=== PATIENT | female | born 1935 | race Caucasian/White ===

== ENCOUNTER 2016-03-05 07:13 | Outpatient (CLI) | payer MEDICARE, OTHER ==
[2016-03-05 08:22] LABS: #Basophils 0.1 thou/uL (0.0-0.2); #Eosinphils 0.2 thou/uL (0.0-0.7); #Lymphocytes 2.6 thou/uL (1.20-3.40); #Monocytes 0.6 thou/uL (0.11-0.59); #Neutrophils 2.3 thou/uL (1.40-6.50); %Basophils 2.2 % (0.0-1.0); %Eosinophils 3.3 % (0.0-10.0); %Lymphocytes 44.8 % (21.0-51.0); %Monocytes 9.8 % (0.0-10.0); Hemoglobin 13.1 g/dL (12.0-16.0); Mean Corpuscular HGB CONC 32.3 g/dL (32.0-36.0); Mean Corpuscular Hemoglobin 32.8 pg (27.0-31.0); Mean Corpuscular Volume 101.3 fl (81.0-99.0); Mean Platelet Volume 7.9 fL (7.4-10.4); Platelet Count 244 thou/uL (130-400); RBC Distribution Width 12.3 % (11.5-14.5); Red Blood Cell (RBC) Count 3.99 mill/uL (4.20-5.40); White Blood Cell (WBC) Count 5.8 thou/uL (4.8-10.8)
[2016-03-05 09:08] LABS: ALT (SGPT) 11 U/L (0-55); AST (SGOT) 10 U/L (5-34); Albumin 3.7 g/dL (3.4-4.8); Alkaline Phosphatase 61 U/L (40-150); Anion Gap 17 mmol/L (10-20); BUN (Urea Nitrogen) 22 mg/dL (9.8-20.1); Bilirubin, Direct 0.2 mg/dL (0.1-0.3); Bilirubin, Total 0.5 mg/dL (0.2-1.2); Calc. Creatinine Clearance 0 mL/min (70-130); Calcium 9.2 mg/dL (7.8-10.44); Carbon Dioxide 25 mmol/L (23-31); Cardiac Risk 2.6 (Less than 4.5); Chloride 106 mmol/L (98-107); Cholesterol 134 mg/dL (< 200 Desired); Estimated GFR-MDRD 72; Glucose 88 mg/dL (83-110); HDL Cholesterol 51 mg/dL (>60 Neg Risk); LDL Cholesterol, Calculated 62 mg/dL; Potassium 4.2 mmol/L (3.5-5.1); Sodium 144 mmol/L (136-145); Triglycerides 105 mg/dL (Less than 150)
== END 2016-03-05 07:14 ==
LOC: MADLABBHPM 07:13
PROVIDERS: ATTEND Family Medicine
DX: E78.5 Hyperlipidemia, unspecified (principal); I10 Essential (primary) hypertension
CPT/HCPCS: 36415; 80048; 80061; 80076; 85025

== ENCOUNTER 2016-05-30 07:09 | Outpatient (CLI) | payer MEDICARE, OTHER ==
[2016-05-30 07:28] LABS: #Basophils 0.1 thou/uL (0.0-0.2); #Eosinphils 0.3 thou/uL (0.0-0.7); #Lymphocytes 2.2 thou/uL (1.20-3.40); #Monocytes 0.7 thou/uL (0.11-0.59); #Neutrophils 2.8 thou/uL (1.40-6.50); %Basophils 1.2 % (0.0-1.0); %Eosinophils 4.4 % (0.0-10.0); %Lymphocytes 36.5 % (21.0-51.0); %Monocytes 11.2 % (0.0-10.0); %Neutrophils 46.7 % (42.0-75.0); Hemoglobin 13.4 g/dL (12.0-16.0); Mean Corpuscular HGB CONC 32.2 g/dL (32.0-36.0); Mean Corpuscular Hemoglobin 32.9 pg (27.0-31.0); Mean Corpuscular Volume 102.1 fl (81.0-99.0); Platelet Count 257 thou/uL (130-400); RBC Distribution Width 12.4 % (11.5-14.5); Red Blood Cell (RBC) Count 4.07 mill/uL (4.20-5.40); White Blood Cell (WBC) Count 6.1 thou/uL (4.8-10.8)
[2016-05-30 07:43] LABS: ALT (SGPT) 12 U/L (0-55); AST (SGOT) 9 U/L (5-34); Albumin 3.8 g/dL (3.4-4.8); Alkaline Phosphatase 74 U/L (40-150); Anion Gap 14 mmol/L (10-20); BUN (Urea Nitrogen) 20 mg/dL (9.8-20.1); Bilirubin, Direct 0.2 mg/dL (0.1-0.3); Bilirubin, Total 0.5 mg/dL (0.2-1.2); Calc. Creatinine Clearance 0 mL/min (70-130); Calcium 9.5 mg/dL (7.8-10.44); Carbon Dioxide 25 mmol/L (23-31); Cardiac Risk 2.9 (Less than 4.5); Chloride 107 mmol/L (98-107); Cholesterol 157 mg/dL (< 200 Desired); Estimated GFR-MDRD 57; Glucose 93 mg/dL (83-110); HDL Cholesterol 54 mg/dL (>60 Neg Risk); LDL Cholesterol, Calculated 80 mg/dL; Potassium 4.7 mmol/L (3.5-5.1); Protein, Total 6.4 g/dL (5.8-8.1); Sodium 141 mmol/L (136-145); Triglycerides 116 mg/dL (Less than 150)
== END 2016-05-30 07:10 | disposition home or self-care (01) ==
LOC: MADLABBHPM 07:09
PROVIDERS: ATTEND Family Medicine
DX: E78.5 Hyperlipidemia, unspecified (principal); I10 Essential (primary) hypertension; I25.10 Atherosclerotic heart disease of native coronary artery without angina pectoris
CPT/HCPCS: 36415; 80048; 80061; 80076; 85025

== ENCOUNTER 2016-09-01 06:58 | Outpatient (CLI) | payer MEDICARE, OTHER ==
[2016-09-01 07:42] LABS: #Basophils 0.1 thou/uL (0.0-0.2); #Eosinphils 0.5 thou/uL (0.0-0.7); #Lymphocytes 2.3 thou/uL (1.20-3.40); #Monocytes 0.8 thou/uL (0.11-0.59); #Neutrophils 3.9 thou/uL (1.40-6.50); %Basophils 1.5 % (0.0-1.0); %Eosinophils 7.1 % (0.0-10.0); %Lymphocytes 30.1 % (21.0-51.0); %Monocytes 9.9 % (0.0-10.0); %Neutrophils 51.4 % (42.0-75.0); Hemoglobin 13.5 g/dL (12.0-16.0); Mean Corpuscular Hemoglobin 33.9 pg (27.0-31.0); Mean Corpuscular Volume 102.7 fl (81.0-99.0); Mean Platelet Volume 7.9 fL (7.4-10.4); Platelet Count 232 thou/uL (130-400); Red Blood Cell (RBC) Count 3.98 mill/uL (4.20-5.40); White Blood Cell (WBC) Count 7.6 thou/uL (4.8-10.8)
[2016-09-01 07:56] LABS: ALT (SGPT) 10 U/L (8-55); AST (SGOT) 10 U/L (5-34); Albumin 3.6 g/dL (3.4-4.8); Alkaline Phosphatase 62 U/L (40-150); Anion Gap 12 mmol/L (10-20); BUN (Urea Nitrogen) 25 mg/dL (9.8-20.1); Bilirubin, Direct 0.3 mg/dL (0.1-0.3); Bilirubin, Total 0.7 mg/dL (0.2-1.2); Calc. Creatinine Clearance 0 mL/min (70-130); Calcium 9.5 mg/dL (7.8-10.44); Carbon Dioxide 27 mmol/L (23-31); Cardiac Risk 2.7 (Less than 4.5); Chloride 108 mmol/L (98-107); Cholesterol 147 mg/dl (< 200 Desired); Estimated GFR-MDRD 74; Glucose 93 mg/dL (83-110); HDL Cholesterol 55 mg/dL (>60 Neg Risk); LDL Cholesterol, Calculated 69 mg/dL; Potassium 4.4 mmol/L (3.5-5.1); Protein, Total 6.7 g/dL (6.0-8.3); Sodium 143 mmol/L (136-145); Triglycerides 116 mg/dL (Less than 150)
== END 2016-09-01 06:59 | disposition home or self-care (01) ==
LOC: MADLAB 06:58
PROVIDERS: ATTEND Family Medicine
DX: E78.5 Hyperlipidemia, unspecified (principal); N28.9 Disorder of kidney and ureter, unspecified; I25.10 Atherosclerotic heart disease of native coronary artery without angina pectoris
CPT/HCPCS: 36415; 80048; 80061; 80076; 85025

== ENCOUNTER 2016-11-20 13:25 | Emergency (ER) | payer MEDICARE, BC, OTHER ==
--- NOTE | 2016-11-20 14:18 | RAD ---
2 VIEWS RIGHT HIP: Date: 11/20/16 COMPARISON: None. HISTORY: Right hip injury with pain. FINDINGS: Two views of the right hip show no evidence of acute fracture or dislocation. There is mild degenera tive change in the right hip. No soft tissue swelling is seen. IMPRESSION: Mild right hip osteoarthritis without acute osseous abnormality. POS: [facility]
--- NOTE | 2016-11-20 14:26 | RAD ---
2 VIEWS RIGHT FEMUR: Date: 11/20/16 COMPARISON: None. HISTORY: Right leg injury with pain. FINDINGS: Two views of the right femur show no evidence of acute fracture or dislocation. Mild degenerative ch jeanna is seen in the right hip. No focal soft tissue swelling is seen. IMPRESSION: No evidence of acute osseous abnormality. POS: [facility]
== END 2016-11-20 14:10 | disposition home or self-care (01) ==
LOC: MADERS 13:25
DX: S70.01XA Contusion of right hip, initial encounter (principal); I11.0 Hypertensive heart disease with heart failure; I50.9 Heart failure, unspecified; E78.5 Hyperlipidemia, unspecified; J45.909 Unspecified asthma, uncomplicated; Z79.899 Other long term (current) drug therapy; W01.0XXA Fall on same level from slipping, tripping and stumbling without subsequent striking against object, initial encounter; Y92.009 Unspecified place in unspecified non-institutional (private) residence as the place of occurrence of the external cause

== ENCOUNTER 2017-12-18 11:40 | Inpatient (IN) | payer MEDICARE, OTHER ==
[2017-12-18] MEDS ORDERED: Acetaminophen 325 MG TAB PO PRN (14:32)
[2017-12-18] MEDS ORDERED: Calcium Carbonate 500 MG ChewTAB PO PRN (14:35)
[2017-12-18] MEDS: HYDROcodone/Acetaminophen 7.5/325 mg Tablet PO PRN (16:37)
[2017-12-18] MEDS ORDERED: Ventolin HFA Inhaler 60 PUFF INHALER INH PRN (17:03)
[2017-12-18 17:39] LABS: Bilirubin Negative (Negative); Blood, Urine Trace (Negative); Clarity Clear (Clear); Glucose, Urine (Dipstick) Negative (Negative); Leukocyte Negative (Negative); Nitrite Negative (Negative); Protein, Urine (Dipstick) Negative (Neg-Trace); Specific Gravity, Urine 1.015 (1.005-1.030); Urobilinogen 0.2 mg/dL (0.2-1.0); pH, Urine 5.5 (5.0-9.0)
[2017-12-18 17:55] LABS: Bacteria/HPF Rare-Few HPF (None Seen); Squamous Epithelial 0-3 HPF (0-3)
--- NOTE | 2017-12-18 18:07 | HP ---
Admitted to [facility] on 12/18/2017 CHIEF COMPLAINT: Weakness following a left knee replacement on 12/15/2017. PRESENT ILLNESS: The patient is an 82-year-old white female who has a history of hypertension; mild coronary artery disease, medically managed; moderate persistent asthma; controlled and severe general ized osteoarthritis particularly of the knees and the back. The patient said increasing pain with am bulation in her left knee that had been unresponsive to conservative measures including steroid injec tions. The patient was hospitalized at [facility] from 12/15/2017 until 12/18/2017 and un derwent a left total knee arthroplasty by orthopedic surgeon, Dr. Jeff Hays. This went very well. She has had no postop complication. She has been up in a bedside chair and ambulating short distan brandyn since the operation. Prior to the operation, the patient was independent of her ADLs lived at he r home alone and was able to drive. The patient was seen soon after her admission, the patient said she has done very well since her surg carlee. The leg is still sore, but she is not having the same pain with weightbearing that she did prio r to the surgery, her pain is from the operation. She is doing well. She has had no nausea or vomit ing. Her bowels have not moved, but she was given a laxative today. She has had no shortness of vee ath or chest pain. PAST HISTORY: Hospitalized at [facility] from 12/15/2017-12/18/2017, severe arthritis of th e left knee for which she underwent a left total knee replacement on 12/15/[address] Jeff Hays w ithout any complication. The patient has hypertension. She has moderate persistent asthma that is c ontrolled, generalized osteoarthritis particularly of the knees. Spondylosis of the lumbar spine wit h spinal stenosis, mild coronary artery disease that has been medically managed. 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 Hyperlipidemia. Patient has had a L4-L5, L5-S1 laminectomy with bilateral fo raminotomy also a foraminotomy at L3-4 with excision of extruded disk sac, this fragment in 09/2000. Orthoscopic assisted rotator cuff repair of the left shoulder, 11/1999, hysterectomy, bilateral joceline ract removal with intraocular lens implants. PRESENT MEDICINES: DuoNeb by nebulizer q.i.d. as needed, Xopenex 2 puffs every 6 hours as needed, ac etaminophen 325 mg 2 every 6 hours as needed for pain, Centrum vitamins 1 daily, Caltrate D of 600/20 0 daily 4 tablets daily, furosemide 40 mg daily, isosorbide mononitrate ER 30 mg daily, Symbicort 160 /4.5 two puffs b.i.d., Singulair 10 mg daily, amlodipine/benazepril 5/20 one daily, gabapentin 100 mg 2 b.i.d., Crestor 40 mg daily, hydralazine 50 mg every 6 hours, benazepril 40 mg daily. ALLERGIES: ZANAFLEX causes numbness. ASPIRIN, nausea. THEOPHYLLINE, unknown. OLANZAPINE, ZYPREXA. REVIEW OF SYSTEMS: Patient denies any weight gain or loss. The patient said she thinks she may have had a little low grade fever. Head and Neck: No complaints. Pulmonary: No shortness of breath, n o wheezing, no cough. Cardiovascular: No chest pain. Gastrointestinal: No nausea or vomiting. Ap petite good. Bowels have not moved for several days. Genitourinary: No complaints. Neuropsychiatr ic: No complaints. Musculoskeletal: The patient has soreness in her left knee from her knee replac ement using ice on the knee intermittently and is ambulating short distances with the use of a walker . HABITS: Alcohol none. Tobacco none. SOCIAL HISTORY: Patient is a . She lives by herself, but has family that lives in the same tow n that assist her with some of her instrumental ADLs. PHYSICAL EXAMINATION: GENERAL: Shows a very pleasant 82-year-old white female who is lying in bed. She is alert. VITAL SIGNS: Temperature of 100.3, pulse 83, respirations 18, O2 sat 96% on room air, blood pressure 136/63. HEAD: Normocephalic and atraumatic. EYES: Pupils are equal, round, and reactive. Sclerae nonicteric. EARS: TMs are clear. NOSE: Normal. MOUTH AND THROAT: Normal. NECK: Carotids are equal and strong, no bruits. Thyroid not enlarged. LUNGS: Clear. HEART: Regular rate. No murmurs. ABDOMEN: Soft, no organomegaly, no areas of tenderness. EXTREMITIES: Lower extremities: There is no edema over the lower legs, the right knee is larger anjel n the left. She has a vertical incision. No drainage. There is an overlying dressing. The knee worthington s pain. There is some increased warmth and expect that within what would be expected for 3 days post op. NEUROLOGIC: The patient alert, oriented x3, has good strength overall, but weak in the left leg seco ndary to the knee replacement. IMPRESSION: 1. Weakness and gait abnormality. A. Secondary to a left total knee replacement on 12/15/2017, dependent ADLs and lived independently prior to surgery. 2. Severe osteoarthritis of the left knee. A. Status post left total knee replacement 12/16/2107. 3. Hospitalized at [facility] from 12/15/2017 until 12/18/2017 for left total knee replac ement. 4. Hypertension. 5. Chronic persistent asthma. A. Controlled. 6. Mild coronary artery disease. A heart catheterization showed a 40%-50% distal RCA stenosis, but no other significant lesions 09/07/1998. B. Medically managed. C. Presently asymptomatic. 7. Hyperlipidemia. 8. Low-grade fever, probably secondary to recent left knee surgery. No focal signs of infection. 9. Spondylosis of the lumbosacral spine complicated by spinal stenosis. PLAN: The patient has been admitted to [facility] extended care for purpose of PT and OT in an effort to improve her strength, deconditioning, and gait. Goals are for her to return home to [facility] living. See orders.
[2017-12-18] MEDS: Mometasone/Formoterol 60 PUFF AER INH SCH (19:00)
[2017-12-18] MEDS: Senokot S 8.6-50 MG TAB PO SCH (20:35)
[2017-12-18] MEDS: Famotidine 20 MG TAB PO SCH (20:35)
[2017-12-18] MEDS: Ferrous Gluconate 324 MG TAB PO SCH (20:36)
[2017-12-19] MEDS: HYDROcodone/Acetaminophen 7.5/325 mg Tablet PO PRN ×3 (04:48→20:32)
[2017-12-19] MEDS: Mometasone/Formoterol 60 PUFF AER INH SCH ×2 (04:49→20:20)
[2017-12-19 06:28] LABS: ALT (SGPT) 17 U/L (8-55); AST (SGOT) 15 U/L (5-34); Albumin 2.9 g/dL (3.4-4.8); Alkaline Phosphatase 68 U/L (40-150); Anion Gap 12 mmol/L (10-20); BUN (Urea Nitrogen) 16 mg/dL (9.8-20.1); Bilirubin, Total 0.8 mg/dL (0.2-1.2); Calc. Creatinine Clearance 77 mL/min (70-130); Calcium 9.1 mg/dL (7.8-10.44); Carbon Dioxide 30 mmol/L (23-31); Chloride 103 mmol/L (98-107); Estimated GFR-MDRD 75; Glucose 108 mg/dL (83-110); Potassium 3.9 mmol/L (3.5-5.1); Protein, Total 5.9 g/dL (6.0-8.3); Sodium 141 mmol/L (136-145)
[2017-12-19 06:36] LABS: Anisocytosis SLIGHT = 6-15 cells (100X) (0-5/hpf); Eosinophils 2 % (0-10); Hemoglobin 9.5 g/dL (12.0-16.0); Hypochromia SLIGHT = 6-15 cells (100X) (0-5/hpf); Lymphocytes 17 % (21-51); MDiff Complete? YES; Mean Corpuscular HGB CONC 32.9 g/dL (32.0-36.0); Mean Corpuscular Volume 100.6 fL (78.0-98.0); Monocytes 7 % (0-10); Neutrophil 74 % (42-75); PLT Morphology Comment Appears Adequate; Platelet Count 224 thou/uL (130-400); Poikilocytosis SLIGHT = 6-15 cells (100X) (0-5/hpf); RBC Distribution Width 12.1 % (11.5-14.5); RBC Morphology Abnormal; Red Blood Cell (RBC) Count 2.87 mill/uL (4.20-5.40); White Blood Cell (WBC) Count 7.2 thou/uL (4.8-10.8)
[2017-12-19] MEDS: hydrALAZINE 25 MG TAB PO SCH (08:52)
[2017-12-19] MEDS: Famotidine 20 MG TAB PO SCH ×2 (08:52→20:21)
[2017-12-19] MEDS: Enoxaparin Sodium 40 MG/0.4 ML SYRINGE SC SCH (08:52)
[2017-12-19] MEDS: Cyanocobalamin (Vitamin B-12) 1,000 MCG TAB PO SCH (08:52)
[2017-12-19] MEDS: Rosuvastatin 10 MG TAB PO SCH (08:53)
[2017-12-19] MEDS: Senokot S 8.6-50 MG TAB PO SCH ×2 (08:53→20:22)
[2017-12-19] MEDS: Ferrous Gluconate 324 MG TAB PO SCH ×2 (08:55→20:21)
[2017-12-19] MEDS: Amlodipine 5 MG TAB PO SCH (08:55)
[2017-12-19] MEDS: Folic Acid 1 MG TAB PO SCH (08:56)
[2017-12-19] MEDS: Multivitamin W/ Minerals 1 TAB PO SCH (08:57)
[2017-12-19] MEDS: Furosemide 40 MG TAB PO SCH (08:57)
[2017-12-19] MEDS: Montelukast Sodium 10 mg Tablet PO SCH (08:57)
[2017-12-19] MEDS ORDERED: AMLODIPINE PO SCH (09:00)
[2017-12-19] MEDS ORDERED: BENAZEPRIL PO SCH (09:00)
[2017-12-20] MEDS: Mometasone/Formoterol 60 PUFF AER INH SCH ×2 (07:41→18:27)
[2017-12-20] MEDS: HYDROcodone/Acetaminophen 7.5/325 mg Tablet PO PRN (08:12)
[2017-12-20] MEDS: Senokot S 8.6-50 MG TAB PO SCH ×2 (08:13→20:42)
[2017-12-20] MEDS: Rosuvastatin 10 MG TAB PO SCH (08:14)
[2017-12-20] MEDS: Cyanocobalamin (Vitamin B-12) 1,000 MCG TAB PO SCH (08:15)
[2017-12-20] MEDS: hydrALAZINE 25 MG TAB PO SCH (08:15)
[2017-12-20] MEDS: Ferrous Gluconate 324 MG TAB PO SCH ×2 (08:15→20:41)
[2017-12-20] MEDS: Montelukast Sodium 10 mg Tablet PO SCH ×2 (08:15→08:16)
[2017-12-20] MEDS: Furosemide 40 MG TAB PO SCH (08:15)
[2017-12-20] MEDS: Multivitamin W/ Minerals 1 TAB PO SCH (08:16)
[2017-12-20] MEDS: Famotidine 20 MG TAB PO SCH ×2 (08:16→20:41)
[2017-12-20] MEDS: Folic Acid 1 MG TAB PO SCH (08:16)
[2017-12-20] MEDS: Amlodipine 5 MG TAB PO SCH (08:16)
[2017-12-20] MEDS: Enoxaparin Sodium 40 MG/0.4 ML SYRINGE SC SCH (08:23)
--- NOTE | 2017-12-21 07:57 | PRG ---
DATE OF SERVICE: 12/19/2017 SUBJECTIVE: The patient said she is feeling better today. Her knee feels better. Reviewed the elisa ent's medication list with her home list, the Lotensin that is amlodipine, benazepril at home was 520 and she is taking the additional benazepril 40 mg. At home she takes hydralazine q.i.d. She is onl y receiving this once here, but her pressure has been very good. OBJECTIVE: GENERAL: The patient is alert, talkative, hard of hearing, but appears in no distress. VITAL SIGNS: Her temperature is 96.9, pulse 74, respirations 18, O2 sat 95% on room air, blood press ure 129/59. LUNGS: Clear. HEART: Regular rate. EXTREMITIES: Left knee is larger than the right. There was a little pinkness to the skin and increa sed warmth typical with this postop. Overall, the leg looks good in the incision is dry with no drai nage. LABORATORY DATA: Her lab shows H and H of 9.5 and 28.9, white cell count 7200 with 74% segs, 17% lym phocytes, and a platelet count of 224,000. Her sodium was 141, potassium 3.9, BUN 16, creatinine 0.7 4, GFR 75, glucose 108, albumin 2.9. Urine shows 4-6 wbc's, nitrite is negative. ASSESSMENT: 1. Weakness and gait abnormality. A. Secondary to a left total knee replacement on 12/15/2017, dependent ADLs and lived independently prior to surgery. B. Improved, tolerating, walking short distances as of 12/19/2017. 2. Severe osteoarthritis of the left knee. A. Doing very well for postop day 4. 3. Hospitalized at [facility] 12[facility]15[facility] 4. Hypertension. A. Controlled as of 12/19/2017. 5. Chronic persistent asthma. A. Controlled. 6. Mild coronary artery disease. A heart catheterization showed a 40%-50% distal RCA stenosis, but no other significant lesions 09/07/1998. B. Medically managed. C. Presently asymptomatic. 7. Hyperlipidemia. 8. Low-grade fever, probably secondary to recent left knee surgery. No focal signs of infection. A. Resolved, 12/19/2017. suspect secondary to recent knee replacement. 9. Spondylosis of the lumbosacral spine complicated by spinal stenosis. PLAN: Continue present care. We will continue present medications. Continue PT and OT. The anemia is secondary to recent surgery.
[2017-12-21] MEDS: Mometasone/Formoterol 60 PUFF AER INH SCH ×2 (08:50→19:34)
[2017-12-21] MEDS: Multivitamin W/ Minerals 1 TAB PO SCH (08:51)
[2017-12-21] MEDS: Senokot S 8.6-50 MG TAB PO SCH ×2 (08:51→21:36)
[2017-12-21] MEDS: Rosuvastatin 10 MG TAB PO SCH (08:52)
[2017-12-21] MEDS: hydrALAZINE 25 MG TAB PO SCH (08:52)
[2017-12-21] MEDS: Cyanocobalamin (Vitamin B-12) 1,000 MCG TAB PO SCH (08:53)
[2017-12-21] MEDS: Famotidine 20 MG TAB PO SCH ×2 (08:53→21:36)
[2017-12-21] MEDS: Furosemide 40 MG TAB PO SCH (08:53)
[2017-12-21] MEDS: Folic Acid 1 MG TAB PO SCH (08:53)
[2017-12-21] MEDS: Ferrous Gluconate 324 MG TAB PO SCH ×2 (08:53→21:36)
[2017-12-21] MEDS: Amlodipine 5 MG TAB PO SCH (08:53)
[2017-12-21] MEDS: Enoxaparin Sodium 40 MG/0.4 ML SYRINGE SC SCH (08:54)
[2017-12-21] MEDS: HYDROcodone/Acetaminophen 7.5/325 mg Tablet PO PRN ×2 (09:08→21:39)
--- NOTE | 2017-12-21 11:57 | PRG ---
DATE OF SERVICE: 12/21/2017 SUBJECTIVE: The patient says her knee feels better. She is up this morning in physical therapy work ing on the [employer]. OBJECTIVE: The patient is sitting up on the NuStep working her legs and arms trying to improve her r jeanna of motion in that left knee. She appears comfortable in no distress. Her vital signs show a te mperature of 99.3, pulse 80, respirations 18, O2 sat 95% on room air, blood pressure 163/72. Lungs a re clear. Heart, regular rate. Lower extremities, no edema. Her left knee, there is some little pi nkness at parts of the knee. There is some increased warmth, but no more than what it has been. Ove rall, the leg looks good. ASSESSMENT: 1. Weakness and gait abnormality. A. Secondary to a left total knee replacement on 12/15/2017, dependent ADLs and lived independently prior to surgery. B. Improved, walking short distances with a rolling walker and standby assistance now working some o n a [facility] as of 12/21/2017. 2. Severe osteoarthritis of the left knee. A. Status post left total knee replacement 12/16/2107. B. Postop day #6, doing very well as of 12/21/2017. 3. Hospitalized at [facility] from 12/15/2017 until 12/18/2017 for left total knee replac emlisa. 4. Hypertension. 5. Chronic persistent asthma. A. Controlled. 6. Mild coronary artery disease. A heart catheterization showed a 40%-50% distal RCA stenosis, but no other significant lesions 09/07/1998. B. Medically managed. C. Presently asymptomatic. 7. Hyperlipidemia. 8. Low-grade fever, probably secondary to recent left knee surgery. No focal signs of infection. 9. Spondylosis of the lumbosacral spine complicated by spinal stenosis. PLAN: Continue present care. Continue PT. The patient occasionally has very low grade temperature, probably from the recent knee surgery. No signs of any infection present.
[2017-12-22] MEDS: Mometasone/Formoterol 60 PUFF AER INH SCH ×2 (08:34→20:18)
[2017-12-22] MEDS ORDERED: HYDROcodone/Acetaminophen 10/325 mg Tablet PO PRN (08:36)
[2017-12-22] MEDS: Amlodipine 5 MG TAB PO SCH (08:37)
[2017-12-22] MEDS: Rosuvastatin 10 MG TAB PO SCH (08:38)
[2017-12-22] MEDS: Senokot S 8.6-50 MG TAB PO SCH ×2 (08:39→20:20)
[2017-12-22] MEDS: Multivitamin W/ Minerals 1 TAB PO SCH (08:39)
[2017-12-22] MEDS: Furosemide 40 MG TAB PO SCH (08:39)
[2017-12-22] MEDS: Ferrous Gluconate 324 MG TAB PO SCH ×2 (08:39→20:20)
[2017-12-22] MEDS: Montelukast Sodium 10 mg Tablet PO SCH (08:39)
[2017-12-22] MEDS: Folic Acid 1 MG TAB PO SCH (08:39)
[2017-12-22] MEDS: Cyanocobalamin (Vitamin B-12) 1,000 MCG TAB PO SCH (08:39)
[2017-12-22] MEDS: Famotidine 20 MG TAB PO SCH ×2 (08:39→20:19)
[2017-12-22] MEDS: hydrALAZINE 25 MG TAB PO SCH (08:39)
[2017-12-22] MEDS: Enoxaparin Sodium 40 MG/0.4 ML SYRINGE SC SCH (08:40)
--- NOTE | 2017-12-22 09:28 | PRG ---
DATE OF SERVICE: 12/22/2017 SUBJECTIVE: The patient said she is doing good. She says her leg is feeling better. She still has limitation of use of it, but is improving. She is working well with physical therapy. OBJECTIVE: The patient is sitting up in bed eating her breakfast. She is alert, appears very comfor table in no distress. Her temperature is 98.2, pulse 72, respirations 16, O2 sat 93% on room air, bl ood pressure 136/61. Lungs are clear. Heart, regular rate. Extremities, no edema. Left knee incis ion healing well. The left knee is a little larger than the right. There is a little increased warm th, no more than what it has been. There is no redness to the knee. ASSESSMENT: 1. Weakness and gait abnormality. A. Secondary to a left total knee replacement on 12/15/2017, dependent ADLs and lived independently prior to surgery. B. Improved. Walking a little further with a rolling walker and standby assistance as of 12/22/2017. 2. Severe osteoarthritis of the left knee. A. Status post left total knee replacement 12/16/2107. B. Postop day #7. Doing well as of 12/22/2017. 3. Hospitalized at [facility] from 12/15/2017 until 12/18/2017 for left total knee replac ement. 4. Hypertension. 5. Chronic persistent asthma. A. Controlled. 6. Mild coronary artery disease. A heart catheterization showed a 40%-50% distal RCA stenosis, but no other significant lesions 09/07/1998. B. Medically managed. C. Presently asymptomatic. 7. Hyperlipidemia. 8. Low-grade fever, probably secondary to recent left knee surgery. No focal signs of infection. A. Resolved as of 12/22/2017. 9. Spondylosis of the lumbosacral spine complicated by spinal stenosis. PLAN: Continue present care. Continue PT and OT.
[2017-12-22] MEDS: HYDROcodone/Acetaminophen 7.5/325 mg Tablet PO PRN (20:21)
[2017-12-23] MEDS: Enoxaparin Sodium 40 MG/0.4 ML SYRINGE SC SCH (08:26)
[2017-12-23] MEDS: Mometasone/Formoterol 60 PUFF AER INH SCH ×2 (08:26→18:05)
[2017-12-23] MEDS: Furosemide 40 MG TAB PO SCH (08:27)
[2017-12-23] MEDS: Rosuvastatin 10 MG TAB PO SCH (08:27)
[2017-12-23] MEDS: Senokot S 8.6-50 MG TAB PO SCH ×2 (08:28→20:32)
[2017-12-23] MEDS: Amlodipine 5 MG TAB PO SCH (08:28)
[2017-12-23] MEDS: Montelukast Sodium 10 mg Tablet PO SCH (08:28)
[2017-12-23] MEDS: Multivitamin W/ Minerals 1 TAB PO SCH (08:29)
[2017-12-23] MEDS: Cyanocobalamin (Vitamin B-12) 1,000 MCG TAB PO SCH (08:29)
[2017-12-23] MEDS: hydrALAZINE 25 MG TAB PO SCH (08:29)
[2017-12-23] MEDS: Famotidine 20 MG TAB PO SCH ×2 (08:29→20:29)
[2017-12-23] MEDS: Folic Acid 1 MG TAB PO SCH (08:29)
[2017-12-23] MEDS: Ferrous Gluconate 324 MG TAB PO SCH ×2 (08:29→20:29)
[2017-12-23] MEDS: HYDROcodone/Acetaminophen 7.5/325 mg Tablet PO PRN ×2 (09:28→20:29)
--- NOTE | 2017-12-23 09:51 | PRG ---
DATE OF SERVICE: 12/23/2017 SUBJECTIVE: The patient thinks she is doing a little better. She is working with physical therapy, working on the NuStep and doing a little more each day. Her knee is feeling better. OBJECTIVE: The patient is sitting on the NuStep working her arms and her legs. She appears comforta ble in no distress. Her temperature 98.8, pulse 83, respirations 18, O2 sat 95% on room air, blood p ressure from last night 133/62. This morning's is pending. Lungs are clear. Heart, regular rate. Left knee incision is healing well. There is no drainage. The left knee is slightly warmer than the right. Overall, the knee looks good. ASSESSMENT: 1. Weakness and gait abnormality. A. Secondary to a left total knee replacement on 12/15/2017, dependent ADLs and lived independently prior to surgery. B. Improved. Walking better using a rolling walker working on the NuStep as of 12/23/2017. 2. Severe osteoarthritis of the left knee. A. Status post left total knee replacement 12/16/2107. B. Postop day 8, doing well as of 12/23/2017. 3. Hospitalized at [facility] from 12/15/2017 until 12/18/2017 for left total knee replac ement. 4. Hypertension. 5. Chronic persistent asthma. A. Controlled. 6. Mild coronary artery disease. A heart catheterization showed a 40%-50% distal RCA stenosis, but no other significant lesions 09/07/1998. B. Medically managed. C. Presently asymptomatic. 7. Hyperlipidemia. 8. Low-grade fever, probably secondary to recent left knee surgery. No focal signs of infection. A. Resolved as of 12/22/2017. 9. Spondylosis of the lumbosacral spine complicated by spinal stenosis. PLAN: Continue PT and OT.
[2017-12-24] MEDS: Mometasone/Formoterol 60 PUFF AER INH SCH ×2 (08:13→21:29)
[2017-12-24] MEDS: Multivitamin W/ Minerals 1 TAB PO SCH (08:14)
[2017-12-24] MEDS: Cyanocobalamin (Vitamin B-12) 1,000 MCG TAB PO SCH (08:14)
[2017-12-24] MEDS: Rosuvastatin 10 MG TAB PO SCH (08:14)
[2017-12-24] MEDS: Famotidine 20 MG TAB PO SCH ×2 (08:14→21:30)
[2017-12-24] MEDS: Senokot S 8.6-50 MG TAB PO SCH ×2 (08:15→21:30)
[2017-12-24] MEDS: Amlodipine 5 MG TAB PO SCH (08:15)
[2017-12-24] MEDS: hydrALAZINE 25 MG TAB PO SCH (08:15)
[2017-12-24] MEDS: Furosemide 40 MG TAB PO SCH (08:15)
[2017-12-24] MEDS: Montelukast Sodium 10 mg Tablet PO SCH (08:15)
[2017-12-24] MEDS: Ferrous Gluconate 324 MG TAB PO SCH ×2 (08:15→21:30)
[2017-12-24] MEDS: Enoxaparin Sodium 40 MG/0.4 ML SYRINGE SC SCH (08:15)
[2017-12-24] MEDS: Folic Acid 1 MG TAB PO SCH (08:15)
[2017-12-24] MEDS: HYDROcodone/Acetaminophen 7.5/325 mg Tablet PO PRN ×2 (08:20→21:32)
[2017-12-25] MEDS: Mometasone/Formoterol 60 PUFF AER INH SCH ×2 (06:25→18:35)
[2017-12-25] MEDS: Amlodipine 5 MG TAB PO SCH (08:41)
[2017-12-25] MEDS: Enoxaparin Sodium 40 MG/0.4 ML SYRINGE SC SCH (08:42)
[2017-12-25] MEDS: Famotidine 20 MG TAB PO SCH ×2 (08:42→20:34)
[2017-12-25] MEDS: Furosemide 40 MG TAB PO SCH (08:42)
[2017-12-25] MEDS: Cyanocobalamin (Vitamin B-12) 1,000 MCG TAB PO SCH (08:42)
[2017-12-25] MEDS: Folic Acid 1 MG TAB PO SCH (08:42)
[2017-12-25] MEDS: Ferrous Gluconate 324 MG TAB PO SCH ×2 (08:42→20:34)
[2017-12-25] MEDS: Montelukast Sodium 10 mg Tablet PO SCH (08:43)
[2017-12-25] MEDS: hydrALAZINE 25 MG TAB PO SCH (08:43)
[2017-12-25] MEDS: Multivitamin W/ Minerals 1 TAB PO SCH (08:43)
[2017-12-25] MEDS: Rosuvastatin 10 MG TAB PO SCH (08:43)
[2017-12-25] MEDS: Senokot S 8.6-50 MG TAB PO SCH ×2 (08:45→20:35)
--- NOTE | 2017-12-25 10:18 | PRG ---
DATE OF SERVICE: 12/25/2017 SUBJECTIVE: The patient said she is doing good. She has already been for a walk this morning and sh e is a little tired. She said the therapist said she has 91 degrees of flexion in that left knee. OBJECTIVE: The patient is sitting up in a chair. She is alert, appears comfortable and in no distre ss. Her temperature 99.1, pulse 76, respirations 18, O2 sat 97% on room air, blood pressure 164/71. Lungs are clear. Heart; regular rate. Left knee is a little larger than the right knee, there is a little increased warmth, but no more than what it has been and typical at this point postop, incisio n healing well. There is no edema of the lower legs. ASSESSMENT: 1. Weakness and gait abnormality. A. Secondary to a left total knee replacement on 12/15/2017, dependent ADLs and lived independently prior to surgery. B. Improved. Walking further, flexion better in the left knee as of 12/25/2017. 2. Severe osteoarthritis of the left knee. A. Status post left total knee replacement 12/16/2107. B. Postop day 10. Doing well as of 12/25/2017. 3. Hospitalized at [facility] from 12/15/2017 until 12/18/2017 for left total knee replac ement. 4. Hypertension. 5. Chronic persistent asthma. A. Controlled. 6. Mild coronary artery disease. A heart catheterization showed a 40%-50% distal RCA stenosis, but no other significant lesions 09/07/1998. B. Medically managed. C. Presently asymptomatic. 7. Hyperlipidemia. 8. Low-grade fever, probably secondary to recent left knee surgery. No focal signs of infection. A. Resolved as of 12/22/2017. 9. Spondylosis of the lumbosacral spine complicated by spinal stenosis. PLAN: The patient continues to make gradual improvement. We will continue present care. Continue P T.
[2017-12-25] MEDS: HYDROcodone/Acetaminophen 7.5/325 mg Tablet PO PRN (12:22)
[2017-12-25] MEDS ORDERED: HYDROcodone/Acetaminophen 10/325 mg Tablet PO PRN (16:56)
[2017-12-26] MEDS: Mometasone/Formoterol 60 PUFF AER INH SCH ×2 (08:40→19:46)
[2017-12-26] MEDS: Cyanocobalamin (Vitamin B-12) 1,000 MCG TAB PO SCH (08:41)
[2017-12-26] MEDS: Enoxaparin Sodium 40 MG/0.4 ML SYRINGE SC SCH (08:41)
[2017-12-26] MEDS: Rosuvastatin 10 MG TAB PO SCH (08:41)
[2017-12-26] MEDS: Famotidine 20 MG TAB PO SCH ×2 (08:41→20:07)
[2017-12-26] MEDS: hydrALAZINE 25 MG TAB PO SCH (08:43)
[2017-12-26] MEDS: Senokot S 8.6-50 MG TAB PO SCH ×2 (08:52→20:06)
[2017-12-26] MEDS: Folic Acid 1 MG TAB PO SCH (08:52)
[2017-12-26] MEDS: Amlodipine 5 MG TAB PO SCH (08:52)
[2017-12-26] MEDS: Multivitamin W/ Minerals 1 TAB PO SCH (08:52)
[2017-12-26] MEDS: Ferrous Gluconate 324 MG TAB PO SCH ×2 (08:52→20:07)
[2017-12-26] MEDS: Furosemide 40 MG TAB PO SCH (08:52)
[2017-12-26] MEDS: Montelukast Sodium 10 mg Tablet PO SCH (08:53)
[2017-12-26] MEDS: HYDROcodone/Acetaminophen 7.5/325 mg Tablet PO PRN ×2 (13:20→20:10)
[2017-12-27] MEDS: Mometasone/Formoterol 60 PUFF AER INH SCH ×2 (07:27→19:14)
[2017-12-27] MEDS: hydrALAZINE 25 MG TAB PO SCH (08:23)
[2017-12-27] MEDS: Rosuvastatin 10 MG TAB PO SCH (08:24)
[2017-12-27] MEDS: Cyanocobalamin (Vitamin B-12) 1,000 MCG TAB PO SCH (08:24)
[2017-12-27] MEDS: Folic Acid 1 MG TAB PO SCH (08:25)
[2017-12-27] MEDS: Montelukast Sodium 10 mg Tablet PO SCH (08:25)
[2017-12-27] MEDS: Furosemide 40 MG TAB PO SCH (08:25)
[2017-12-27] MEDS: Ferrous Gluconate 324 MG TAB PO SCH ×2 (08:25→20:14)
[2017-12-27] MEDS: Multivitamin W/ Minerals 1 TAB PO SCH (08:25)
[2017-12-27] MEDS: Senokot S 8.6-50 MG TAB PO SCH ×2 (08:25→20:14)
[2017-12-27] MEDS: Famotidine 20 MG TAB PO SCH ×2 (08:25→20:14)
[2017-12-27] MEDS: Amlodipine 5 MG TAB PO SCH (08:26)
[2017-12-27] MEDS: Enoxaparin Sodium 40 MG/0.4 ML SYRINGE SC SCH (08:27)
[2017-12-27] MEDS: HYDROcodone/Acetaminophen 7.5/325 mg Tablet PO PRN (21:28)
[2017-12-28] MEDS: Mometasone/Formoterol 60 PUFF AER INH SCH ×2 (08:21→17:04)
[2017-12-28] MEDS: Enoxaparin Sodium 40 MG/0.4 ML SYRINGE SC SCH (08:22)
[2017-12-28] MEDS: Rosuvastatin 10 MG TAB PO SCH (08:23)
[2017-12-28] MEDS: Famotidine 20 MG TAB PO SCH ×2 (08:23→20:05)
[2017-12-28] MEDS: Folic Acid 1 MG TAB PO SCH (08:24)
[2017-12-28] MEDS: Furosemide 40 MG TAB PO SCH (08:24)
[2017-12-28] MEDS: Ferrous Gluconate 324 MG TAB PO SCH ×2 (08:24→20:05)
[2017-12-28] MEDS: Cyanocobalamin (Vitamin B-12) 1,000 MCG TAB PO SCH (08:24)
[2017-12-28] MEDS: hydrALAZINE 25 MG TAB PO SCH (08:24)
[2017-12-28] MEDS: Amlodipine 5 MG TAB PO SCH (08:24)
[2017-12-28] MEDS: Multivitamin W/ Minerals 1 TAB PO SCH (08:25)
[2017-12-28] MEDS: Senokot S 8.6-50 MG TAB PO SCH ×2 (08:25→20:07)
[2017-12-28] MEDS: Montelukast Sodium 10 mg Tablet PO SCH (08:25)
[2017-12-28] MEDS: HYDROcodone/Acetaminophen 7.5/325 mg Tablet PO PRN ×2 (08:27→20:05)
--- NOTE | 2017-12-28 12:00 | PRG ---
DATE OF SERVICE: 12/26/2017 SUBJECTIVE: The patient said that she is doing good today. She is moving a little better, but is be nding the leg a little better, still slow progress. She had no really new complaints. OBJECTIVE: GENERAL: The patient is sitting in her lounge chair, just returning from the bathroom with assistanc e. She looks comfortable, in no distress. VITAL SIGNS: Her temperature is 98.3, pulse 84, blood pressure 182/80, has not yet had all her morni ng meds, respirations 20, O2 sat 98% on room air. Review of her blood pressure shows that they have been ranging from 129-136 systolic. LUNGS: Clear. HEART: Regular rate. EXTREMITIES: Lower extremities, there is no edema. Left knee is larger than the right. Incision worthington s no drainage. Knee is a little warmer than the opposite knee, but this is very typical for this poi nt postop. ASSESSMENT: 1. Weakness and gait abnormality. A. Secondary to a left total knee replacement on 12/15/2017, dependent ADLs and lived independently prior to surgery. B. Improved. Walking further, flexion better in the left knee as of 12/26/2017. 2. Severe osteoarthritis of the left knee. A. Status post left total knee replacement 12/16/2107. B. Postop day 11, doing well, as of 12/26/2017. 3. Hospitalized at [facility] from 12/15/2017 until 12/18/2017 for left total knee replac ement. 4. Hypertension. 5. Chronic persistent asthma. A. Controlled. 6. Mild coronary artery disease. A heart catheterization showed a 40%-50% distal RCA stenosis, but no other significant lesions 09/07/1998. B. Medically managed. C. Presently asymptomatic. 7. Hyperlipidemia. 8. Low-grade fever, probably secondary to recent left knee surgery. No focal signs of infection. A. Resolved as of 12/22/2017. 9. Spondylosis of the lumbosacral spine complicated by spinal stenosis. PLAN: Continue present care. Continue PT, OT.
--- NOTE | 2017-12-28 12:01 | PRG ---
DATE OF SERVICE: 12/28/2017 SUBJECTIVE: The patient said she is doing okay, still a little sore in that knee, is making a little further progress. OBJECTIVE: GENERAL: The patient is sitting up in her chair. She is alert, appears comfortable and in no distre ss. VITAL SIGNS: Her temperature is 97.1, pulse 70, blood pressure 132/61, respirations 20, O2 sat 96%. LUNGS: Clear. HEART: Regular rate. EXTREMITIES: Left knee is little larger than the right. The incision is healing well. There is a l ittle slight warmth, but these are typical postop findings. Overall, the leg looks good. ASSESSMENT: 1. Weakness and gait abnormality. A. Secondary to a left total knee replacement on 12/15/2017, dependent ADLs and lived independently prior to surgery. B. Improved. Walking further, flexion better in the left knee as of 12/28/2017. 2. Severe osteoarthritis of the left knee. A. Status post left total knee replacement 12/16/2107. B. Postop day #13, doing well, as of 12/28/2017. 3. Hospitalized at [facility] from 12/15/2017 until 12/18/2017 for left total knee replac emlisa. 4. Hypertension. 5. Chronic persistent asthma. A. Controlled. 6. Mild coronary artery disease. A heart catheterization showed a 40%-50% distal RCA stenosis, but no other significant lesions 09/07/1998. B. Medically managed. C. Presently asymptomatic. 7. Hyperlipidemia. 8. Low-grade fever, probably secondary to recent left knee surgery. No focal signs of infection. A. Resolved as of 12/22/2017. 9. Spondylosis of the lumbosacral spine complicated by spinal stenosis. PLAN: Continue present care. Continue PT and OT.
[2017-12-28] MEDS ORDERED: Senokot S 8.6-50 MG TAB PO SCH (14:00)
[2017-12-29] MEDS: HYDROcodone/Acetaminophen 7.5/325 mg Tablet PO PRN ×4 (04:59→20:21)
[2017-12-29] MEDS: Senokot S 8.6-50 MG TAB PO SCH ×2 (09:56→20:23)
[2017-12-29] MEDS: Rosuvastatin 10 MG TAB PO SCH (09:57)
[2017-12-29] MEDS: Amlodipine 5 MG TAB PO SCH (09:57)
[2017-12-29] MEDS: Cyanocobalamin (Vitamin B-12) 1,000 MCG TAB PO SCH (09:57)
[2017-12-29] MEDS: Folic Acid 1 MG TAB PO SCH (09:57)
[2017-12-29] MEDS: Mometasone/Formoterol 60 PUFF AER INH SCH ×2 (09:58→18:06)
[2017-12-29] MEDS: Furosemide 40 MG TAB PO SCH (09:58)
[2017-12-29] MEDS: Multivitamin W/ Minerals 1 TAB PO SCH (09:58)
[2017-12-29] MEDS: Montelukast Sodium 10 mg Tablet PO SCH (09:58)
[2017-12-29] MEDS: hydrALAZINE 25 MG TAB PO SCH (09:58)
[2017-12-29] MEDS: Enoxaparin Sodium 40 MG/0.4 ML SYRINGE SC SCH (09:58)
[2017-12-29] MEDS: Famotidine 20 MG TAB PO SCH ×2 (09:58→20:22)
[2017-12-29] MEDS: Ferrous Gluconate 324 MG TAB PO SCH ×2 (09:58→20:23)
--- NOTE | 2017-12-29 12:54 | PRG ---
DATE OF SERVICE: 12/29/2017 SUBJECTIVE: The patient said she is doing alright. She has been up since around 5. She has some so reness around the knee which has been pretty typical for her. She has taken a pain medicine and afte r breakfast will be ready for therapy. She is progressing with her therapy. OBJECTIVE: The patient is sitting up in her chair. She is alert, looks comfortable in no distress. Her temperature is 97.3, pulse 70, respirations 18, O2 sat 96% on room air, blood pressure 129/60. Her lungs are clear. Heart, regular rate. Extremities, no edema. Left leg is a little larger than the right. Incision healing well. ASSESSMENT: 1. Weakness and gait abnormality. A. Secondary to a left total knee replacement on 12/15/2017, dependent ADLs and lived independently prior to surgery. B. Improved. Walking further, flexion better in the left knee as of 12/29/2017. 2. Severe osteoarthritis of the left knee. A. Status post left total knee replacement 12/16/2107. B. Postop day 14. Doing well as of 12/29/2017. 3. Hospitalized at [facility] from 12/15/2017 until 12/18/2017 for left total knee replac ement. 4. Hypertension. 5. Chronic persistent asthma. A. Controlled. 6. Mild coronary artery disease. A heart catheterization showed a 40%-50% distal RCA stenosis, but no other significant lesions 09/07/1998. B. Medically managed. C. Presently asymptomatic. 7. Hyperlipidemia. 8. Low-grade fever, probably secondary to recent left knee surgery. No focal signs of infection. A. Resolved as of 12/22/2017. 9. Spondylosis of the lumbosacral spine complicated by spinal stenosis. PLAN: Continue present care. Continue PT and OT.
[2017-12-30] MEDS: Mometasone/Formoterol 60 PUFF AER INH SCH ×2 (06:05→18:07)
[2017-12-30] MEDS: Ferrous Gluconate 324 MG TAB PO SCH ×2 (08:29→20:43)
[2017-12-30] MEDS: Folic Acid 1 MG TAB PO SCH (08:29)
[2017-12-30] MEDS: Furosemide 40 MG TAB PO SCH (08:29)
[2017-12-30] MEDS: Rosuvastatin 10 MG TAB PO SCH (08:29)
[2017-12-30] MEDS: Senokot S 8.6-50 MG TAB PO SCH ×2 (08:30→20:43)
[2017-12-30] MEDS: Cyanocobalamin (Vitamin B-12) 1,000 MCG TAB PO SCH (08:30)
[2017-12-30] MEDS: Famotidine 20 MG TAB PO SCH ×2 (08:30→20:42)
[2017-12-30] MEDS: Multivitamin W/ Minerals 1 TAB PO SCH (08:30)
[2017-12-30] MEDS: Montelukast Sodium 10 mg Tablet PO SCH (08:30)
[2017-12-30] MEDS: Amlodipine 5 MG TAB PO SCH (08:30)
[2017-12-30] MEDS: Enoxaparin Sodium 40 MG/0.4 ML SYRINGE SC SCH (08:31)
[2017-12-30] MEDS: hydrALAZINE 25 MG TAB PO SCH (08:31)
[2017-12-30] MEDS: HYDROcodone/Acetaminophen 7.5/325 mg Tablet PO PRN ×2 (08:32→20:43)
--- NOTE | 2017-12-30 10:02 | PRG ---
DATE OF SERVICE: 12/30/2017 SUBJECTIVE: The patient said she is doing alright. She is walking further. She is wearing her shoe s now and she thinks she can walk better with this than the socks. Her knee is feeling better, feels much better since without the weightbearing pain that she had prior to her surgery. Still has the p ostop pain, but this is improving. OBJECTIVE: The patient is sitting up in her bedside chair. She is alert, appears very comfortable, in no distress. Her temperature is 97.9, pulse 77, respirations 18, O2 sat 95% on room air, blood pr essure 140/63. Lungs are clear. Heart, regular rate. Extremities, no edema. Left knee incision he aling well. The knee is a little larger than the right. There is slight increased warmth compared t o the right. Overall, the knee looks very, very good. ASSESSMENT: 1. Weakness and gait abnormality. A. Secondary to a left total knee replacement on 12/15/2017, dependent ADLs and lived independently prior to surgery. B. Improved. Walking further, flexion better in the left knee as of 12/30/2017. 2. Severe osteoarthritis of the left knee. A. Status post left total knee replacement 12/16/2107. B. Postoperative day 14, doing well as of 12/30/2017. 3. Hospitalized at [facility] from 12[facility]15[facility]2017 [facility] 4. Hypertension. 5. Chronic persistent asthma. A. Controlled. 6. Mild coronary artery disease. A heart catheterization showed a 40%-50% distal RCA stenosis, but no other significant lesions 09/07/1998. B. Medically managed. C. Presently asymptomatic. 7. Hyperlipidemia. 8. Low-grade fever, probably secondary to recent left knee surgery. No focal signs of infection. A. Resolved as of 12/22/2017. 9. Spondylosis of the lumbosacral spine complicated by spinal stenosis. PLAN: Continue present care. Continue PT and OT.
[2017-12-31] MEDS: Mometasone/Formoterol 60 PUFF AER INH SCH ×2 (05:50→18:16)
[2017-12-31] MEDS: Enoxaparin Sodium 40 MG/0.4 ML SYRINGE SC SCH (08:30)
[2017-12-31] MEDS: Multivitamin W/ Minerals 1 TAB PO SCH (08:31)
[2017-12-31] MEDS: Senokot S 8.6-50 MG TAB PO SCH ×2 (08:31→21:50)
[2017-12-31] MEDS: Rosuvastatin 10 MG TAB PO SCH (08:31)
[2017-12-31] MEDS: hydrALAZINE 25 MG TAB PO SCH (08:31)
[2017-12-31] MEDS: Furosemide 40 MG TAB PO SCH (08:31)
[2017-12-31] MEDS: Cyanocobalamin (Vitamin B-12) 1,000 MCG TAB PO SCH (08:31)
[2017-12-31] MEDS: Folic Acid 1 MG TAB PO SCH (08:32)
[2017-12-31] MEDS: Montelukast Sodium 10 mg Tablet PO SCH (08:32)
[2017-12-31] MEDS: Amlodipine 5 MG TAB PO SCH (08:32)
[2017-12-31] MEDS: Famotidine 20 MG TAB PO SCH ×2 (08:32→21:49)
[2017-12-31] MEDS: Ferrous Gluconate 324 MG TAB PO SCH ×2 (08:32→21:49)
[2017-12-31] MEDS: HYDROcodone/Acetaminophen 7.5/325 mg Tablet PO PRN (23:42)
[2018-01-01] MEDS: Mometasone/Formoterol 60 PUFF AER INH SCH ×2 (07:25→18:12)
[2018-01-01] MEDS: HYDROcodone/Acetaminophen 7.5/325 mg Tablet PO PRN ×3 (08:47→21:13)
[2018-01-01] MEDS: Enoxaparin Sodium 40 MG/0.4 ML SYRINGE SC SCH (08:48)
[2018-01-01] MEDS: Cyanocobalamin (Vitamin B-12) 1,000 MCG TAB PO SCH (08:48)
[2018-01-01] MEDS: Rosuvastatin 10 MG TAB PO SCH (08:49)
[2018-01-01] MEDS: hydrALAZINE 25 MG TAB PO SCH (08:49)
[2018-01-01] MEDS: Folic Acid 1 MG TAB PO SCH (08:53)
[2018-01-01] MEDS: Senokot S 8.6-50 MG TAB PO SCH ×2 (08:53→21:12)
[2018-01-01] MEDS: Montelukast Sodium 10 mg Tablet PO SCH (08:53)
[2018-01-01] MEDS: Multivitamin W/ Minerals 1 TAB PO SCH (08:53)
[2018-01-01] MEDS: Ferrous Gluconate 324 MG TAB PO SCH ×2 (08:53→21:13)
[2018-01-01] MEDS: Furosemide 40 MG TAB PO SCH (08:53)
[2018-01-01] MEDS: Famotidine 20 MG TAB PO SCH ×2 (08:54→21:13)
[2018-01-01] MEDS: Amlodipine 5 MG TAB PO SCH (08:54)
--- NOTE | 2018-01-01 11:58 | PRG ---
DATE OF SERVICE: 01/01/2018. SUBJECTIVE: The patient said she has been doing good, just having a little more pain in her knee thi s morning. She just recently taken some pain medicine and this usually helps. She is doing better w ith her therapy. OBJECTIVE: GENERAL: The patient is sitting on the edge of the bed. She is alert, appears a little uncomfortabl e but is just taking pain medicine. VITAL SIGNS: Shows a temperature of 98.5, pulse 68, blood pressure 160/69, respirations 18, O2 sat 9 7% on room air. LUNGS: Clear. HEART: Regular rate. EXTREMITIES: Her left knee, the incision is healing well. The knee is a little warmer than the oppo site and also a little larger, but no change and very typical for this postop period. There is no ed sydnie in the distal leg. ASSESSMENT: 1. Weakness and gait abnormality. A. Secondary to a left total knee replacement on 12/15/2017, dependent ADLs and lived independently prior to surgery. B. Improved. Walking better. Flexion better in the left knee as of 01/01/2018. 2. Severe osteoarthritis of the left knee. A. Status post left total knee replacement 12/16/2107. B. Postop day 16. Doing well as of 01/01/2018. 3. Hospitalized at [facility] from 12/15/2017 until 12/18/2017 for left total knee replac emlisa. 4. Hypertension. 5. Chronic persistent asthma. A. Controlled. 6. Mild coronary artery disease. A heart catheterization showed a 40%-50% distal RCA stenosis, but no other significant lesions 09/07/1998. B. Medically managed. C. Presently asymptomatic. 7. Hyperlipidemia. 8. Low-grade fever, probably secondary to recent left knee surgery. No focal signs of infection. A. Resolved as of 12/22/2017. 9. Spondylosis of the lumbosacral spine complicated by spinal stenosis.
[2018-01-02] MEDS: Mometasone/Formoterol 60 PUFF AER INH SCH ×2 (06:27→18:23)
[2018-01-02] MEDS: Ferrous Gluconate 324 MG TAB PO SCH ×2 (09:13→21:10)
[2018-01-02] MEDS: Amlodipine 5 MG TAB PO SCH (09:13)
[2018-01-02] MEDS: Enoxaparin Sodium 40 MG/0.4 ML SYRINGE SC SCH (09:13)
[2018-01-02] MEDS: hydrALAZINE 25 MG TAB PO SCH (09:13)
[2018-01-02] MEDS: Famotidine 20 MG TAB PO SCH ×2 (09:14→21:10)
[2018-01-02] MEDS: Cyanocobalamin (Vitamin B-12) 1,000 MCG TAB PO SCH (09:14)
[2018-01-02] MEDS: Multivitamin W/ Minerals 1 TAB PO SCH (09:14)
[2018-01-02] MEDS: Rosuvastatin 10 MG TAB PO SCH (09:14)
[2018-01-02] MEDS: Senokot S 8.6-50 MG TAB PO SCH ×2 (09:14→21:12)
[2018-01-02] MEDS: Montelukast Sodium 10 mg Tablet PO SCH (09:14)
[2018-01-02] MEDS: Folic Acid 1 MG TAB PO SCH (09:14)
[2018-01-02] MEDS: Furosemide 40 MG TAB PO SCH (09:15)
[2018-01-02] MEDS: HYDROcodone/Acetaminophen 7.5/325 mg Tablet PO PRN (21:10)
[2018-01-03] MEDS: Mometasone/Formoterol 60 PUFF AER INH SCH ×2 (06:09→18:09)
[2018-01-03] MEDS: Famotidine 20 MG TAB PO SCH ×2 (08:56→21:03)
[2018-01-03] MEDS: Montelukast Sodium 10 mg Tablet PO SCH (08:56)
[2018-01-03] MEDS: Ferrous Gluconate 324 MG TAB PO SCH ×2 (08:56→21:03)
[2018-01-03] MEDS: hydrALAZINE 25 MG TAB PO SCH (08:56)
[2018-01-03] MEDS: Folic Acid 1 MG TAB PO SCH (08:56)
[2018-01-03] MEDS: Furosemide 40 MG TAB PO SCH (08:57)
[2018-01-03] MEDS: Senokot S 8.6-50 MG TAB PO SCH ×2 (08:57→21:02)
[2018-01-03] MEDS: Cyanocobalamin (Vitamin B-12) 1,000 MCG TAB PO SCH (08:57)
[2018-01-03] MEDS: Rosuvastatin 10 MG TAB PO SCH (08:57)
[2018-01-03] MEDS: Multivitamin W/ Minerals 1 TAB PO SCH (08:57)
[2018-01-03] MEDS: Amlodipine 5 MG TAB PO SCH (08:57)
[2018-01-03] MEDS: Enoxaparin Sodium 40 MG/0.4 ML SYRINGE SC SCH (08:58)
[2018-01-03] MEDS: HYDROcodone/Acetaminophen 7.5/325 mg Tablet PO PRN ×2 (09:05→18:11)
[2018-01-04] MEDS: Mometasone/Formoterol 60 PUFF AER INH SCH ×2 (06:41→20:57)
[2018-01-04] MEDS: HYDROcodone/Acetaminophen 7.5/325 mg Tablet PO PRN ×2 (06:45→15:24)
[2018-01-04] MEDS: Amlodipine 5 MG TAB PO SCH (08:34)
[2018-01-04] MEDS: Ferrous Gluconate 324 MG TAB PO SCH ×2 (08:35→20:59)
[2018-01-04] MEDS: Cyanocobalamin (Vitamin B-12) 1,000 MCG TAB PO SCH (08:35)
[2018-01-04] MEDS: Folic Acid 1 MG TAB PO SCH (08:35)
[2018-01-04] MEDS: Senokot S 8.6-50 MG TAB PO SCH ×2 (08:35→20:59)
[2018-01-04] MEDS: Famotidine 20 MG TAB PO SCH ×2 (08:35→20:59)
[2018-01-04] MEDS: hydrALAZINE 25 MG TAB PO SCH (08:35)
[2018-01-04] MEDS: Rosuvastatin 10 MG TAB PO SCH (08:35)
[2018-01-04] MEDS: Furosemide 40 MG TAB PO SCH (08:36)
[2018-01-04] MEDS: Multivitamin W/ Minerals 1 TAB PO SCH (08:36)
[2018-01-04] MEDS: Enoxaparin Sodium 40 MG/0.4 ML SYRINGE SC SCH (08:36)
[2018-01-04] MEDS: Montelukast Sodium 10 mg Tablet PO SCH (08:36)
--- NOTE | 2018-01-04 13:37 | PRG ---
DATE OF SERVICE: 01/04/2018 SUBJECTIVE: The patient said she is doing better. She has been up in physical therapy [facility] She is feeling better. OBJECTIVE: The patient is working out on the [employer]. She is alert, appears in no distress. Her vit al signs show a temperature of 98 last evening, this morning's is pending. Pulse 68, O2 sat 94% on r oom air, blood pressure 125/60. Lungs are clear. Heart, regular rate. Left knee incision healing w ell. There is just a little pinkness around the knee. Slight increased warmth, but no more than wha t it has been. The left knee still a little larger than the right. There is no edema in the lower l eg. Overall, the leg looks like it is doing better. ASSESSMENT: 1. Weakness and gait abnormality. A. Secondary to a left total knee replacement on 12/15/2017, dependent ADLs and lived independently prior to surgery. B. Improved. Walking better. Flexion better in the left knee as of 01/04/2018. 2. Severe osteoarthritis of the left knee. A. Status post left total knee replacement 12/16/2107. B. Postop day #19. Doing well as of 01/04/2018. 3. Hospitalized at [facility] from 12/15/2017 until 12/18/2017 for left total knee replac ement. 4. Hypertension. 5. Chronic persistent asthma. A. Controlled. 6. Mild coronary artery disease. A heart catheterization showed a 40%-50% distal RCA stenosis, but no other significant lesions 09/07/1998. B. Medically managed. C. Presently asymptomatic. 7. Hyperlipidemia. 8. Low-grade fever, probably secondary to recent left knee surgery. No focal signs of infection. A. Resolved as of 12/22/2017. 9. Spondylosis of the lumbosacral spine complicated by spinal stenosis. PLAN: Continue present care.
[2018-01-05 05:14] LABS: #Basophils 0.1 thou/uL (0.0-0.2); #Eosinphils 0.2 thou/uL (0.0-0.7); #Lymphocytes 1.8 thou/uL (1.20-3.40); #Monocytes 0.7 thou/uL (0.11-0.59); #Neutrophils 3.9 thou/uL (1.40-6.50); %Basophils 1.2 % (0.0-1.0); %Eosinophils 2.9 % (0.0-10.0); %Lymphocytes 27.1 % (21.0-51.0); %Monocytes 9.9 % (0.0-10.0); %Neutrophils 58.9 % (42.0-75.0); Hemoglobin 10.2 g/dL (12.0-16.0); Mean Corpuscular HGB CONC 32.1 g/dL (32.0-36.0); Mean Corpuscular Hemoglobin 32.9 pg (27.0-31.0); Mean Corpuscular Volume 102.3 fL (78.0-98.0); Mean Platelet Volume 5.9 fL (7.4-10.4); Platelet Count 408 thou/uL (130-400); RBC Distribution Width 13.2 % (11.5-14.5); Red Blood Cell (RBC) Count 3.11 mill/uL (4.20-5.40); White Blood Cell (WBC) Count 6.7 thou/uL (4.8-10.8)
[2018-01-05 05:21] LABS: Anion Gap 13 mmol/L (10-20); BUN (Urea Nitrogen) 20 mg/dL (9.8-20.1); Calc. Creatinine Clearance 72 mL/min (70-130); Calcium 9.2 mg/dL (7.8-10.44); Carbon Dioxide 28 mmol/L (23-31); Chloride 105 mmol/L (98-107); Estimated GFR-MDRD 70; Glucose 97 mg/dL (83-110); Potassium 4.6 mmol/L (3.5-5.1); Sodium 141 mmol/L (136-145)
[2018-01-05] MEDS: Mometasone/Formoterol 60 PUFF AER INH SCH ×2 (06:09→18:05)
[2018-01-05] MEDS: Enoxaparin Sodium 40 MG/0.4 ML SYRINGE SC SCH (09:04)
[2018-01-05] MEDS: Cyanocobalamin (Vitamin B-12) 1,000 MCG TAB PO SCH (09:05)
[2018-01-05] MEDS: Senokot S 8.6-50 MG TAB PO SCH ×2 (09:05→21:19)
[2018-01-05] MEDS: hydrALAZINE 25 MG TAB PO SCH (09:05)
[2018-01-05] MEDS: Multivitamin W/ Minerals 1 TAB PO SCH (09:05)
[2018-01-05] MEDS: Ferrous Gluconate 324 MG TAB PO SCH ×2 (09:05→21:18)
[2018-01-05] MEDS: Montelukast Sodium 10 mg Tablet PO SCH (09:05)
[2018-01-05] MEDS: Famotidine 20 MG TAB PO SCH ×2 (09:05→21:17)
[2018-01-05] MEDS: Rosuvastatin 10 MG TAB PO SCH (09:05)
[2018-01-05] MEDS: Furosemide 40 MG TAB PO SCH (09:06)
[2018-01-05] MEDS: Folic Acid 1 MG TAB PO SCH (09:06)
[2018-01-05] MEDS: Amlodipine 5 MG TAB PO SCH (09:06)
--- NOTE | 2018-01-05 10:17 | PRG ---
DATE OF SERVICE: 01/05/2018 SUBJECTIVE: The patient says she is doing better. She is doing well with her physical therapy. Her knee is feeling better. OBJECTIVE: GENERAL: Patient is lying in bed with the head elevated. She is awake, alert, appears very comforta ble and in no distress. VITAL SIGNS: Her temperature is 98.2, pulse 67, respirations 18, O2 sat 96% on room air, blood press ure 108/53. LUNGS: Clear. HEART: Regular rate. EXTREMITIES: Her left knee incision is healing well. There is no redness, no drainage, no swelling in the lower leg. LABORATORY DATA: Shows her hemoglobin is up to 10.2 and hematocrit 31.8, white cell count 6700 with 59% segs, 27% lymphocytes, and a platelet count of 408,000. Her sodium is 141, potassium 4.6, BUN 20 , creatinine 0.78, GFR 70, glucose 97. ASSESSMENT: 1. Weakness and gait abnormality. A. Secondary to a left total knee replacement on 12/15/2017, dependent ADLs and lived independently prior to surgery. B. Improved. Walking further. Good flexion in the left knee as of 01/05/2018. 2. Severe osteoarthritis of the left knee. A. Status post left total knee replacement 12/16/2107. B. Postop day #19, doing well as of 01/05/2018. 3. Hospitalized at [facility] from 12/15[facility] 4. Hypertension. 5. Chronic persistent asthma. A. Controlled. 6. Mild coronary artery disease. A heart catheterization showed a 40%-50% distal RCA stenosis, but no other significant lesions 09/07/1998. B. Medically managed. C. Presently asymptomatic. 7. Hyperlipidemia. 8. Low-grade fever, probably secondary to recent left knee surgery. No focal signs of infection. A. Resolved as of 12/22/2017. 9. Spondylosis of the lumbosacral spine complicated by spinal stenosis. PLAN: The patient continues to improve. We will continue PT, OT. Tentatively, we are planning on h er discharge to her home on 01/08/2018.
[2018-01-05] MEDS: HYDROcodone/Acetaminophen 7.5/325 mg Tablet PO PRN (19:14)
[2018-01-06] MEDS: Mometasone/Formoterol 60 PUFF AER INH SCH ×2 (06:01→18:40)
[2018-01-06] MEDS: HYDROcodone/Acetaminophen 7.5/325 mg Tablet PO PRN ×3 (06:03→20:55)
[2018-01-06] MEDS: Montelukast Sodium 10 mg Tablet PO SCH (08:24)
[2018-01-06] MEDS: Famotidine 20 MG TAB PO SCH ×2 (08:24→20:55)
[2018-01-06] MEDS: Folic Acid 1 MG TAB PO SCH (08:24)
[2018-01-06] MEDS: Multivitamin W/ Minerals 1 TAB PO SCH (08:24)
[2018-01-06] MEDS: Rosuvastatin 10 MG TAB PO SCH (08:24)
[2018-01-06] MEDS: Senokot S 8.6-50 MG TAB PO SCH ×2 (08:24→20:55)
[2018-01-06] MEDS: hydrALAZINE 25 MG TAB PO SCH (08:24)
[2018-01-06] MEDS: Amlodipine 5 MG TAB PO SCH (08:25)
[2018-01-06] MEDS: Furosemide 40 MG TAB PO SCH (08:25)
[2018-01-06] MEDS: Ferrous Gluconate 324 MG TAB PO SCH ×2 (08:25→20:55)
[2018-01-06] MEDS: Enoxaparin Sodium 40 MG/0.4 ML SYRINGE SC SCH (08:26)
[2018-01-06] MEDS: Cyanocobalamin (Vitamin B-12) 1,000 MCG TAB PO SCH (08:26)
--- NOTE | 2018-01-06 09:43 | PRG ---
DATE OF SERVICE: 01/06/2018 SUBJECTIVE: The patient said that her left knee is hurting a little more today, maybe because she just had a little bit more workout yesterday. She also asked if she could delay her discharge from Thursday the , until 01/11/2018. This is the day she is also due to see Dr. Hays. This will help a lot per her family with arrangements for transport home and to the doctor. OBJECTIVE: GENERAL: The patient is alert, appears in no acute distress. She is sitting on the side of bed, looks a little uncomfortable on rubbing her knee. VITAL SIGNS: Show a temperature of 96.3, pulse 67, respirations are 18, O2 sat 95%, blood pressure 130/59. LUNGS: Clear. HEART: Regular rate. EXTREMITIES: Left knee, there is no redness. Incision is healing well. There is no drainage. Leg is about the same size. There is no edema in the lower leg. ASSESSMENT: 1. Weakness and gait abnormality. a. Secondary to left total knee replacement on 12/15/2017. b. Improved.Walking further.Good flexion of the left knee as of 01/07/2018. 2. Severe osteoarthritis of the left knee. a. 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 b. Postop day #20, doing well as of 01/06/2018. 3. Hospitalized at [facility] from 12/15/2017 until 12/18/2017 for left total knee replacement. 4. Hypertension. a. Controlled as of 01/07. 5. Chronic persistent asthma. a. Controlled. 6. Mild coronary artery disease. a. Heart cath showed 40% to 50% distal right coronary artery stenosis on 09/07/1998. b. Medically managed. c. Presently asymptomatic as of 01/07. 7. Spondylosis of the lumbar spine, complicated by spinal stenosis. PLAN: The patient is having a little more soreness today, probably from the increased therapy yesterday. She will continue her PT. We will delay discharge until 01/11/2018. Job ID: [id number]
[2018-01-07] MEDS: Mometasone/Formoterol 60 PUFF AER INH SCH ×2 (06:08→18:21)
[2018-01-07] MEDS: Enoxaparin Sodium 40 MG/0.4 ML SYRINGE SC SCH (08:34)
[2018-01-07] MEDS: Cyanocobalamin (Vitamin B-12) 1,000 MCG TAB PO SCH (08:34)
[2018-01-07] MEDS: hydrALAZINE 25 MG TAB PO SCH (08:35)
[2018-01-07] MEDS: Senokot S 8.6-50 MG TAB PO SCH ×2 (08:35→21:27)
[2018-01-07] MEDS: Rosuvastatin 10 MG TAB PO SCH (08:35)
[2018-01-07] MEDS: Famotidine 20 MG TAB PO SCH ×2 (08:35→21:26)
[2018-01-07] MEDS: Furosemide 40 MG TAB PO SCH (08:35)
[2018-01-07] MEDS: Montelukast Sodium 10 mg Tablet PO SCH (08:36)
[2018-01-07] MEDS: Folic Acid 1 MG TAB PO SCH (08:36)
[2018-01-07] MEDS: Multivitamin W/ Minerals 1 TAB PO SCH (08:36)
[2018-01-07] MEDS: Ferrous Gluconate 324 MG TAB PO SCH ×2 (08:36→21:26)
[2018-01-07] MEDS: Amlodipine 5 MG TAB PO SCH (08:37)
[2018-01-07] MEDS: HYDROcodone/Acetaminophen 7.5/325 mg Tablet PO PRN ×3 (08:48→21:27)
--- NOTE | 2018-01-07 15:40 | RAD ---
LEFT KNEE FOUR VIEWS: History: Knee replacement with lateral knee pain. FINDINGS: Total knee prosthesis is present. The prosthesis is in good position. No signs of loosening or fractu re. Some arthritic changes of the tibial and fibular joint space is seen. IMPRESSION: No acute changes. POS: JOSE
--- NOTE | 2018-01-07 19:49 | PRG ---
DATE OF SERVICE: 01/07/2018 SUBJECTIVE: This afternoon, the patient had worked out with physical therapy. Therapist said that she has gotten back 100% of her flexion. She was walking back to her room with assistance and a rolling walker and had some severe pain along the anterolateral aspect of the left knee. She had a hard time to get comfortable. She eventually had decrease in the pain after the leg was iced and she received her hydrocodone. The therapist said that when he looked at her leg, did not look any malalignment. OBJECTIVE: GENERAL: The patient was checked in the room. She was lying down and looked comfortable. VITAL SIGNS: Showed a temperature 98, pulse 66, blood pressure 129/66, respirations 18, and O2 saturation on room air 96%. EXTREMITIES: Her left knee, there is no redness. There is increased warmth compared to the opposite knee, but no more than what it has been and very typical of this after the knee replacement. The incision is healing well. There is no malalignment. There is a little puffiness in the knee on the lateral lower aspect of the incision, but that area is not tender and has no increased heat compared to the remaining area of the knee. LABORATORY DATA: The patient has x-ray image of the knee that showed the presence of a total knee prosthesis. The prosthesis was in good position. There were no signs of loosening nor fracture. There was some arthritic change along the tibia and fibula joint space. ASSESSMENT: 1. Weakness and gait abnormality. a. Secondary to left total knee replacement on 12/15/2017. b. Improved. Walking further. Good flexion of the left knee as of 2017. 2. Severe osteoarthritis of the left knee. a. 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 b. Postop day #23, doing well except for an episode of increased pain along the anterolateral aspect following her therapy session. X-ray showed no fracture or dislocation and presence of the total knee replacement prosthesis as of 2017. 3. Hospitalized at [facility] from 12/15/2017 until 12/18/2017 for left total knee replacement. 4. Hypertension. a. Controlled as of 01/07. 5. Chronic persistent asthma. a. Controlled. 6. Mild coronary artery disease. a. Heart cath showed 40% to 50% distal right coronary artery stenosis on 1998. b. Medically managed. c. Presently asymptomatic as of 01/07. 7. Spondylosis of the lumbar spine, complicated by spinal stenosis. PLAN: The patient has been doing very well with her therapy today. This afternoon after completing her therapy, she had increased pain in the anterolateral aspect. This may have just been from the increased activity and flexion. She seems to be feeling a little better after pain medicine and ice pack. We will continue to use the ice as needed and the pain medicine as needed. She will gradually get back into therapy within her tolerance. She is scheduled to see Dr. Hays, her orthopedic surgeon on Thursday, 01/11. Job ID: [id number] MTDD
[2018-01-08] MEDS: Mometasone/Formoterol 60 PUFF AER INH SCH ×2 (05:59→19:19)
[2018-01-08] MEDS: Ferrous Gluconate 324 MG TAB PO SCH ×2 (08:29→20:46)
[2018-01-08] MEDS: Rosuvastatin 10 MG TAB PO SCH (08:29)
[2018-01-08] MEDS: Folic Acid 1 MG TAB PO SCH (08:29)
[2018-01-08] MEDS: Furosemide 40 MG TAB PO SCH (08:29)
[2018-01-08] MEDS: Enoxaparin Sodium 40 MG/0.4 ML SYRINGE SC SCH (08:40)
[2018-01-08] MEDS: Senokot S 8.6-50 MG TAB PO SCH ×2 (08:40→20:47)
[2018-01-08] MEDS: Famotidine 20 MG TAB PO SCH ×2 (08:40→20:47)
[2018-01-08] MEDS: Montelukast Sodium 10 mg Tablet PO SCH (08:41)
[2018-01-08] MEDS: Amlodipine 5 MG TAB PO SCH (08:41)
[2018-01-08] MEDS: hydrALAZINE 25 MG TAB PO SCH (08:41)
[2018-01-08] MEDS: Cyanocobalamin (Vitamin B-12) 1,000 MCG TAB PO SCH (08:41)
[2018-01-08] MEDS: Multivitamin W/ Minerals 1 TAB PO SCH (08:41)
[2018-01-08] MEDS: HYDROcodone/Acetaminophen 7.5/325 mg Tablet PO PRN ×2 (08:51→20:49)
--- NOTE | 2018-01-08 10:51 | PRG ---
DATE OF SERVICE: 01/08/2018 SUBJECTIVE: The patient said that she had a good night. Her left knee is feeling a lot better and she feels like she can resume her therapy. The ice helped her and also positioning her knee on a pillow helped. OBJECTIVE: GENERAL: The patient is sitting up in bed with left knee supported in the bed. She looks very comfortable and in no distress. VITAL SIGNS: Show temperature of 97.2, pulse 67, , respirations 18, O2 sat 95% on room air, LUNGS: Clear. HEART: Regular rate. EXTREMITIES: Left knee, there is no redness. Incision is healing well and knee looks the same. There is a little puffiness just on the lateral inferior aspect of the incision, but that area is not tender nor fluctuant. The lower leg has no edema. ASSESSMENT: 1. Weakness and gait abnormality. a. Secondary to left total knee replacement on 12/15/2017. b. Improved. We will resume physical therapy today. She had been doing very well with her distance and flexion as of 01/08/2018. 2. Severe osteoarthritis of the left knee. a. 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 b. Postop day #23, doing well. The episode of severe pain following PT on 01/07/2018 has resolved as of 01/08/2018. 3. Hospitalized at [facility] from 12/15/2017 until 12/18/2017 for left total knee replacement. 1. Hypertension. a. Controlled as of 01/08/2018. 2. Chronic persistent asthma. a. Controlled. 3. Mild coronary artery disease. a. Heart cath showed 40% to 50% distal right coronary artery stenosis on 09/07/1998. b. Medically managed. c. Presently asymptomatic as of 01/08/2018. 4. Spondylosis of the lumbar spine, complicated by spinal stenosis. PLAN: Resume physical therapy. May be up in chair as tolerated. Continue ambulation with walker. Continue the ice after therapy and p.r.n. The patient is scheduled to see her surgeon, Dr. Hays on 01/11. Job ID: [id number]
[2018-01-09] MEDS: Mometasone/Formoterol 60 PUFF AER INH SCH ×2 (08:38→17:59)
[2018-01-09] MEDS: Cyanocobalamin (Vitamin B-12) 1,000 MCG TAB PO SCH (08:39)
[2018-01-09] MEDS: Rosuvastatin 10 MG TAB PO SCH (08:39)
[2018-01-09] MEDS: Multivitamin W/ Minerals 1 TAB PO SCH (08:39)
[2018-01-09] MEDS: Famotidine 20 MG TAB PO SCH ×2 (08:39→21:32)
[2018-01-09] MEDS: Furosemide 40 MG TAB PO SCH (08:39)
[2018-01-09] MEDS: Enoxaparin Sodium 40 MG/0.4 ML SYRINGE SC SCH (08:39)
[2018-01-09] MEDS: Senokot S 8.6-50 MG TAB PO SCH ×2 (08:40→21:31)
[2018-01-09] MEDS: Amlodipine 5 MG TAB PO SCH (08:40)
[2018-01-09] MEDS: Ferrous Gluconate 324 MG TAB PO SCH ×2 (08:40→21:32)
[2018-01-09] MEDS: hydrALAZINE 25 MG TAB PO SCH (08:40)
[2018-01-09] MEDS: Folic Acid 1 MG TAB PO SCH (08:41)
[2018-01-09] MEDS: Montelukast Sodium 10 mg Tablet PO SCH (08:41)
--- NOTE | 2018-01-09 10:32 | PRG ---
DATE OF SERVICE: 01/09/2018 SUBJECTIVE: The patient is feeling better. Still has some soreness in the knee and still has just a little puffiness on the left lateral aspect of the knee, which has been there since the surgery. That area is not hurting. She is scheduled to see Dr. Hays on Thursday, 01/11. OBJECTIVE: GENERAL: The patient is sitting up in a chair. She looks comfortable. VITAL SIGNS: Her temp is 98.2, her pulse is 68, blood pressure 129/66, respirations are 18, O2 saturation on room air 94%. LUNGS: Clear. HEART: Regular rate. EXTREMITIES: Left leg, the lower leg has no edema. The left knee is larger than the right, but no more so than what it has been. There is some slight increased warmth that is unchanged. There is a little puffiness just on the lateral inferior aspect of the incision, and a little slight pollack discoloration of the skin. The area was nontender. ASSESSMENT: 1. Weakness and gait abnormality. a. Secondary to left total knee replacement on 12/15/2017. b. Improved. Walking further. Good flexion of the left knee as of 2017. 2. Severe osteoarthritis of the left knee. a. 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 b. Postop day #25, gradually improving as of 01/09/2018. 3. Hospitalized at [facility] from 12/15/2017 until 12/18/2017 for left total knee replacement. 4. Hypertension. a. Controlled as of 01/09. 5. Chronic persistent asthma. a. Controlled. 6. Mild coronary artery disease. a. Heart cath showed 40% to 50% distal right coronary artery stenosis on 1998. b. Medically managed. c. Presently asymptomatic as of 01/09. 7. Spondylosis of the lumbar spine, complicated by spinal stenosis. PLAN: Continue the physical therapy. The patient's daughter, Cyndi, is with her today, and the patient is scheduled to see Dr. Hays on the . She will come back here after that visit to try to gain some added strength. She is not quite ready to go home. She was thinking that she could go home by herself, but she will need someone in the home with her in that transitioning period from the hospital back to independent living. Job ID: [id number] [facility]
[2018-01-09] MEDS: HYDROcodone/Acetaminophen 7.5/325 mg Tablet PO PRN ×2 (11:38→21:34)
[2018-01-10] MEDS: Mometasone/Formoterol 60 PUFF AER INH SCH ×2 (07:40→17:59)
[2018-01-10] MEDS: Enoxaparin Sodium 40 MG/0.4 ML SYRINGE SC SCH (08:50)
[2018-01-10] MEDS: Montelukast Sodium 10 mg Tablet PO SCH (08:51)
[2018-01-10] MEDS: Ferrous Gluconate 324 MG TAB PO SCH ×2 (08:51→20:31)
[2018-01-10] MEDS: Senokot S 8.6-50 MG TAB PO SCH ×2 (08:51→20:31)
[2018-01-10] MEDS: Rosuvastatin 10 MG TAB PO SCH (08:51)
[2018-01-10] MEDS: Multivitamin W/ Minerals 1 TAB PO SCH (08:51)
[2018-01-10] MEDS: Furosemide 40 MG TAB PO SCH (08:51)
[2018-01-10] MEDS: Cyanocobalamin (Vitamin B-12) 1,000 MCG TAB PO SCH (08:51)
[2018-01-10] MEDS: Folic Acid 1 MG TAB PO SCH (08:52)
[2018-01-10] MEDS: Famotidine 20 MG TAB PO SCH ×2 (08:52→20:31)
[2018-01-10] MEDS: Amlodipine 5 MG TAB PO SCH (08:52)
[2018-01-10] MEDS: HYDROcodone/Acetaminophen 7.5/325 mg Tablet PO PRN ×2 (08:53→20:35)
[2018-01-10] MEDS: hydrALAZINE 25 MG TAB PO SCH (08:53)
[2018-01-10] MEDS ORDERED: SYMBICORT INH SCH (19:00)
[2018-01-11] MEDS: SYMBICORT INH SCH ×2 (06:01→18:05)
[2018-01-11] MEDS: Enoxaparin Sodium 40 MG/0.4 ML SYRINGE SC SCH (08:22)
[2018-01-11] MEDS: Rosuvastatin 10 MG TAB PO SCH (08:22)
[2018-01-11] MEDS: Furosemide 40 MG TAB PO SCH (08:22)
[2018-01-11] MEDS: Amlodipine 5 MG TAB PO SCH (08:23)
[2018-01-11] MEDS: Senokot S 8.6-50 MG TAB PO SCH ×2 (08:23→20:13)
[2018-01-11] MEDS: hydrALAZINE 25 MG TAB PO SCH (08:23)
[2018-01-11] MEDS: Cyanocobalamin (Vitamin B-12) 1,000 MCG TAB PO SCH (08:24)
[2018-01-11] MEDS: Montelukast Sodium 10 mg Tablet PO SCH (08:24)
[2018-01-11] MEDS: HYDROcodone/Acetaminophen 7.5/325 mg Tablet PO PRN ×2 (08:25→15:41)
[2018-01-11] MEDS: Multivitamin W/ Minerals 1 TAB PO SCH (08:25)
[2018-01-11] MEDS: Folic Acid 1 MG TAB PO SCH (08:26)
[2018-01-11] MEDS: Famotidine 20 MG TAB PO SCH ×2 (08:26→20:13)
[2018-01-11] MEDS: Ferrous Gluconate 324 MG TAB PO SCH ×2 (08:26→20:13)
--- NOTE | 2018-01-11 09:46 | PRG ---
DATE OF SERVICE: 01/11/2018 SUBJECTIVE: The patient says she is feeling good today. Her daughter is with her this morning and will be taking her to see Dr. Hays, her orthopedic surgeon this afternoon for recheck on her left knee. The patient is not having the severe pain as she had had a few days ago on that left knee. She is doing better with therapy. OBJECTIVE: GENERAL: The patient is sitting on the side of the bed with her left knee flexed about 90 degrees. She looks very comfortable, in no distress. VITAL SIGNS: Temp is 97.9; pulse 66; respirations 18; O2 saturation 97%; blood pressure 152/65, earlier 139/91. LUNGS: Clear. HEART: Regular rate. EXTREMITIES: Left knee, there is no redness. The incision is healing well. There is no drainage. There is a slight increased warmth in the knee, but no more than it has been. Left knee is only slightly larger than the right. Overall, the knee looks very good. There is no point tenderness. ASSESSMENT: ASSESSMENT: 1. Weakness and gait abnormality. a. Secondary to left total knee replacement on 12/15/2017. b. Improved. Walking further. Good flexion of the left knee as of 01/10/2018. 2. Severe osteoarthritis of the left knee. a. 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 b. Improving as of 01/11/2018. 3. Hospitalized at [facility] from 12/15/2017 until 12/18/2017 for left total knee replacement. 1. Hypertension. a. Controlled as of 01/11/2018. 2. Chronic persistent asthma. a. Controlled. 3. Mild coronary artery disease. a. Heart cath showed 40% to 50% distal right coronary artery stenosis on 09/07/1998. b. Medically managed. c. Presently asymptomatic as of 01/11/2018. 4. Spondylosis of the lumbar spine, complicated by spinal stenosis. PLAN: Continue PT and OT. The patient will see Dr. Hays today. If continues to do well, will probably go home at the end of this week. Job ID: [id number]
[2018-01-11] MEDS ORDERED: Sodium Chloride 0.9% 250 ML 0 ML ONE (21:05)
[2018-01-12] MEDS: HYDROcodone/Acetaminophen 7.5/325 mg Tablet PO PRN ×3 (03:47→19:30)
[2018-01-12] MEDS: SYMBICORT INH SCH ×2 (06:01→18:05)
[2018-01-12] MEDS: Enoxaparin Sodium 40 MG/0.4 ML SYRINGE SC SCH (08:20)
[2018-01-12] MEDS: Senokot S 8.6-50 MG TAB PO SCH ×2 (08:20→20:11)
[2018-01-12] MEDS: Rosuvastatin 10 MG TAB PO SCH (08:20)
[2018-01-12] MEDS: Famotidine 20 MG TAB PO SCH ×2 (08:21→20:11)
[2018-01-12] MEDS: Montelukast Sodium 10 mg Tablet PO SCH (08:21)
[2018-01-12] MEDS: Furosemide 40 MG TAB PO SCH (08:21)
[2018-01-12] MEDS: Amlodipine 5 MG TAB PO SCH (08:21)
[2018-01-12] MEDS: Ferrous Gluconate 324 MG TAB PO SCH ×2 (08:21→20:12)
[2018-01-12] MEDS: Folic Acid 1 MG TAB PO SCH (08:21)
[2018-01-12] MEDS: Multivitamin W/ Minerals 1 TAB PO SCH (08:21)
[2018-01-12] MEDS: hydrALAZINE 25 MG TAB PO SCH (08:22)
[2018-01-12] MEDS: Cyanocobalamin (Vitamin B-12) 1,000 MCG TAB PO SCH (08:22)
--- NOTE | 2018-01-12 13:48 | PRG ---
DATE OF SERVICE: 01/12/2018 SUBJECTIVE: The patient says she is doing very well this morning. Her daughter took her to see Dr. Hays, orthopedic surgeon, at [place] yesterday. The trip went well. The visit with Dr. Hays went well. He reviewed her x-rays that were made when she had pain in the left knee on the lateral aspect. He felt like she may have had a tiny chip avulsion fracture from what he could see and did not recommend changing anything. She is not having the pain like she was. Everything else was doing good and he was pleased with her progress. OBJECTIVE: GENERAL: The patient is sitting up in bed. She is alert, looks very comfortable, and in no distress. VITAL SIGNS: Her temperature is 97.8, pulse 65, respirations 18, O2 saturation 97% on room air, and blood pressure 133/59. LUNGS: Clear. HEART: Regular rate. EXTREMITIES: Left knee incision well healed. No drainage. No redness. The little mild puffiness on the lateral inferior aspect of the knee is abating. The knee was nontender. There is no distal edema. ASSESSMENT: 1. Weakness and gait abnormality. a. Secondary to left total knee replacement on 12/15/2017. b. Improved. Walking further. Good flexion of the left knee as of 01/12/2018. The visit with Dr. Hays, her orthopedic surgeon, on 01/11/2018, at which time he felt like she was doing excellent. 2. Severe osteoarthritis of the left knee. a. 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 b. Improving as of 01/12/2018. 3. Hospitalized at [facility] from 12/15/2017 until 12/18/2017 for left total knee replacement. 1. Hypertension. a. Controlled as of 01/12/2018. 2. Chronic persistent asthma. a. Controlled. 3. Mild coronary artery disease. a. Heart cath showed 40% to 50% distal right coronary artery stenosis on 09/07/1998, medically managed. b. Presently asymptomatic as of 01/12/2018. 4. Spondylosis of the lumbar spine, complicated by spinal stenosis. 5. Spondylosis of the lumbar spine, complicated by spinal stenosis. a. Stable. PLAN: The patient is doing very well. We will continue the Physical Therapy and OT. We are tentatively planning for her discharge home on 01/15/2018. Job ID: [id number]
[2018-01-13] MEDS: HYDROcodone/Acetaminophen 7.5/325 mg Tablet PO PRN ×3 (01:19→20:21)
[2018-01-13] MEDS: SYMBICORT INH SCH ×2 (05:48→18:15)
[2018-01-13] MEDS: Enoxaparin Sodium 40 MG/0.4 ML SYRINGE SC SCH ×2 (08:31→08:34)
[2018-01-13] MEDS: hydrALAZINE 25 MG TAB PO SCH (08:32)
[2018-01-13] MEDS: Folic Acid 1 MG TAB PO SCH (08:32)
[2018-01-13] MEDS: Rosuvastatin 10 MG TAB PO SCH (08:32)
[2018-01-13] MEDS: Montelukast Sodium 10 mg Tablet PO SCH ×2 (08:32→08:33)
[2018-01-13] MEDS: Multivitamin W/ Minerals 1 TAB PO SCH (08:33)
[2018-01-13] MEDS: Famotidine 20 MG TAB PO SCH ×2 (08:33→20:18)
[2018-01-13] MEDS: Furosemide 40 MG TAB PO SCH (08:33)
[2018-01-13] MEDS: Senokot S 8.6-50 MG TAB PO SCH ×2 (08:33→20:18)
[2018-01-13] MEDS: Cyanocobalamin (Vitamin B-12) 1,000 MCG TAB PO SCH (08:33)
[2018-01-13] MEDS: Ferrous Gluconate 324 MG TAB PO SCH ×2 (08:34→20:17)
[2018-01-13] MEDS: Amlodipine 5 MG TAB PO SCH (08:35)
--- NOTE | 2018-01-13 14:12 | PRG ---
DATE OF SERVICE: 01/13/2018 SUBJECTIVE: The patient says she is doing all right this morning, just a little sore. Yesterday, she had another little episode of the pain along the lateral aspect of her leg, but she said it did not hurt to move and she was able to participate with PT. This morning, she is better. She has asked that we delay her discharge from Thursday until ThursdayJanuary 20. By this way, she will have plenty of adequate care at home. This should not be a problem, this will give an additional week for PT. OBJECTIVE: GENERAL: The patient is sitting on the side of her bed. She looks comfortable, in no distress. VITAL SIGNS: Her temp 98.0, pulse 63, respirations 18, O2 saturation 96% on room air, and blood pressure 140/63. LUNGS: Clear. HEART: Regular rate. EXTREMITIES: Lower extremities, no edema. The left knee, the incision is clean. There is no redness, no drainage. Her range of motion is improving. She can flex a little over 90 degrees. ASSESSMENT: 1. Weakness and gait abnormality. a. Secondary to left total knee replacement on 12/15/2017. b. Continued improvement. Walking further, transferring further, good flexion of the left knee as of 01/13/2018. 2. Severe osteoarthritis of the left knee. a. 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 b. Improving as of 01/13/2018. 3. Hospitalized at [facility] from 12/15/2017 until 12/18/2017 for left total knee replacement. 4. Hypertension. a. Controlled as of 01/12/2018. 5. Chronic persistent asthma. a. Controlled. 6. Mild coronary artery disease. a. Heart cath showed 40% to 50% distal right coronary artery stenosis on 1998, medically managed. b. Asymptomatic as of 01/13/2018. 7. Spondylosis of the lumbar spine, complicated by spinal stenosis. a. Stable. PLAN Continue PT and OT. Tentative discharge date will be 01/20/2018. Job ID: [id number] MTDD
[2018-01-14] MEDS: SYMBICORT INH SCH ×2 (06:25→18:09)
[2018-01-14] MEDS: Enoxaparin Sodium 40 MG/0.4 ML SYRINGE SC SCH (09:58)
[2018-01-14] MEDS: Famotidine 20 MG TAB PO SCH ×2 (09:58→21:24)
[2018-01-14] MEDS: Rosuvastatin 10 MG TAB PO SCH (09:58)
[2018-01-14] MEDS: Ferrous Gluconate 324 MG TAB PO SCH ×2 (09:58→21:24)
[2018-01-14] MEDS: Furosemide 40 MG TAB PO SCH (09:59)
[2018-01-14] MEDS: Multivitamin W/ Minerals 1 TAB PO SCH (09:59)
[2018-01-14] MEDS: Montelukast Sodium 10 mg Tablet PO SCH (09:59)
[2018-01-14] MEDS: Folic Acid 1 MG TAB PO SCH (09:59)
[2018-01-14] MEDS: Amlodipine 5 MG TAB PO SCH (09:59)
[2018-01-14] MEDS: Senokot S 8.6-50 MG TAB PO SCH ×2 (10:00→21:24)
[2018-01-14] MEDS: Cyanocobalamin (Vitamin B-12) 1,000 MCG TAB PO SCH (10:00)
[2018-01-14] MEDS: hydrALAZINE 25 MG TAB PO SCH (10:00)
[2018-01-14] MEDS: HYDROcodone/Acetaminophen 7.5/325 mg Tablet PO PRN ×2 (12:02→21:25)
--- NOTE | 2018-01-14 15:39 | PRG ---
DATE OF SERVICE: 01/14/2018 SUBJECTIVE: The patient says she is feeling good today. She is working well with therapy. She has no new complaint. OBJECTIVE: GENERAL: The patient is sitting up in bed, looks comfortable, and in no distress. VITAL SIGNS: Show temperature 97.2, pulse 68, respirations 18, O2 saturation 98 % on room air, and blood pressure 146/66. LUNGS: Clear. HEART: Regular rate. EXTREMITIES: Lower extremities; no edema. Left knee incision healing well, no drainage, no redness. ASSESSMENT: 1. Weakness and gait abnormality. a. Secondary to left total knee replacement on 12/15/2017. b. Continued improvement. Walking further, transferring further, good flexion of the left knee as of 01/14/2018. 2. Severe osteoarthritis of the left knee. a. 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 b. Improving as of 01/14/2018. 3. Hospitalized at [facility] from 12/15/2017 until 12/18/2017 for left total knee replacement. 4. Hypertension. a. Controlled as of 01/14/2018. 5. Chronic persistent asthma. a. Controlled. 6. Mild coronary artery disease. a. Heart cath showed 40% to 50% distal right coronary artery stenosis on , medically managed. b. Asymptomatic as of 01/14/2018. 4. Spondylosis of the lumbar spine, complicated by spinal stenosis. a. Stable. PLAN: Continue present care. Continue PT and OT. Job ID: [id number] MTDD
[2018-01-14 19:40] VITALS: BMI 36.6
[2018-01-15] MEDS: Rosuvastatin 10 MG TAB PO SCH (09:14)
[2018-01-15] MEDS: Cyanocobalamin (Vitamin B-12) 1,000 MCG TAB PO SCH (09:15)
[2018-01-15] MEDS: Famotidine 20 MG TAB PO SCH ×2 (09:15→20:54)
[2018-01-15] MEDS: Furosemide 40 MG TAB PO SCH (09:16)
[2018-01-15] MEDS: hydrALAZINE 25 MG TAB PO SCH (09:16)
[2018-01-15] MEDS: Montelukast Sodium 10 mg Tablet PO SCH (09:16)
[2018-01-15] MEDS: Amlodipine 5 MG TAB PO SCH (09:16)
[2018-01-15] MEDS: Senokot S 8.6-50 MG TAB PO SCH ×2 (09:17→20:54)
[2018-01-15] MEDS: Enoxaparin Sodium 40 MG/0.4 ML SYRINGE SC SCH (09:17)
[2018-01-15] MEDS: Ferrous Gluconate 324 MG TAB PO SCH ×2 (09:17→20:54)
[2018-01-15] MEDS: Multivitamin W/ Minerals 1 TAB PO SCH (09:17)
[2018-01-15] MEDS: SYMBICORT INH SCH ×2 (09:17→23:46)
[2018-01-15] MEDS: Folic Acid 1 MG TAB PO SCH (09:17)
[2018-01-15] MEDS: HYDROcodone/Acetaminophen 7.5/325 mg Tablet PO PRN ×2 (10:56→20:54)
--- NOTE | 2018-01-15 14:16 | PRG ---
DATE OF SERVICE: 01/15/2018 SUBJECTIVE: The patient thinks she is doing well. She is making progress with her walking and transfers. Her leg feels better. OBJECTIVE: GENERAL: The patient is sitting up in her chair, fixing to go for a walk. VITAL SIGNS: Show a temp 98.2, pulse 66, respirations 18, O2 saturation 96% on room air, and blood pressure 130/60. LUNGS: Clear. HEART: Regular rate. EXTREMITIES: Lower extremities, no edema. Left knee is slightly warmer than the right, but none changed from the last few days. There is no redness. Incision well healed. ASSESSMENT: 1. Weakness and gait abnormality. a. Secondary to left total knee replacement on 12/15/2017. b. Continued improvement. Walking further, transferring further, good flexion of the left knee as of 01/15/2018. 2. Severe osteoarthritis of the left knee. a. 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 b. Improving as of 01/15/2018. 3. Hospitalized at [facility] from 12/15/2017 until 12/18/2017 for left total knee replacement. 1. Hypertension. a. Controlled as of 01/14/2018. 2. Chronic persistent asthma. a. Controlled. 3. Mild coronary artery disease. a. Heart cath showed 40% to 50% distal right coronary artery stenosis on , medically managed. b. Asymptomatic as of 01/15/2018. 4. Spondylosis of the lumbar spine, complicated by spinal stenosis. a. Stable. PLAN: Continue PT and OT. Job ID: [id number] MTDD
[2018-01-16] MEDS: SYMBICORT INH SCH ×2 (06:12→18:07)
[2018-01-16] MEDS: Enoxaparin Sodium 40 MG/0.4 ML SYRINGE SC SCH (08:42)
[2018-01-16] MEDS: Famotidine 20 MG TAB PO SCH ×2 (08:43→21:21)
[2018-01-16] MEDS: Montelukast Sodium 10 mg Tablet PO SCH (08:43)
[2018-01-16] MEDS: Senokot S 8.6-50 MG TAB PO SCH ×2 (08:43→21:22)
[2018-01-16] MEDS: Rosuvastatin 10 MG TAB PO SCH (08:43)
[2018-01-16] MEDS: Ferrous Gluconate 324 MG TAB PO SCH ×2 (08:43→21:21)
[2018-01-16] MEDS: Cyanocobalamin (Vitamin B-12) 1,000 MCG TAB PO SCH (08:44)
[2018-01-16] MEDS: Furosemide 40 MG TAB PO SCH (08:44)
[2018-01-16] MEDS: Amlodipine 5 MG TAB PO SCH (08:44)
[2018-01-16] MEDS: Multivitamin W/ Minerals 1 TAB PO SCH (08:44)
[2018-01-16] MEDS: Folic Acid 1 MG TAB PO SCH (08:45)
[2018-01-16] MEDS: HYDROcodone/Acetaminophen 7.5/325 mg Tablet PO PRN ×3 (08:48→21:22)
[2018-01-16] MEDS: hydrALAZINE 25 MG TAB PO SCH (08:49)
[2018-01-17] MEDS: SYMBICORT INH SCH ×2 (06:03→18:04)
[2018-01-17] MEDS: Furosemide 40 MG TAB PO SCH (08:51)
[2018-01-17] MEDS: Rosuvastatin 10 MG TAB PO SCH (08:51)
[2018-01-17] MEDS: Folic Acid 1 MG TAB PO SCH (08:51)
[2018-01-17] MEDS: Ferrous Gluconate 324 MG TAB PO SCH ×2 (08:51→20:01)
[2018-01-17] MEDS: Multivitamin W/ Minerals 1 TAB PO SCH (08:51)
[2018-01-17] MEDS: Senokot S 8.6-50 MG TAB PO SCH ×2 (08:51→20:01)
[2018-01-17] MEDS: Cyanocobalamin (Vitamin B-12) 1,000 MCG TAB PO SCH (08:52)
[2018-01-17] MEDS: Amlodipine 5 MG TAB PO SCH (08:52)
[2018-01-17] MEDS: Famotidine 20 MG TAB PO SCH ×2 (08:52→20:01)
[2018-01-17] MEDS: hydrALAZINE 25 MG TAB PO SCH (08:52)
[2018-01-17] MEDS: Enoxaparin Sodium 40 MG/0.4 ML SYRINGE SC SCH (08:52)
[2018-01-17] MEDS: Montelukast Sodium 10 mg Tablet PO SCH (08:52)
[2018-01-17] MEDS: HYDROcodone/Acetaminophen 7.5/325 mg Tablet PO PRN ×2 (11:03→22:02)
[2018-01-18] MEDS: SYMBICORT INH SCH ×2 (06:18→19:27)
[2018-01-18] MEDS: HYDROcodone/Acetaminophen 7.5/325 mg Tablet PO PRN ×2 (08:55→19:28)
[2018-01-18] MEDS: Enoxaparin Sodium 40 MG/0.4 ML SYRINGE SC SCH (08:57)
[2018-01-18] MEDS: hydrALAZINE 25 MG TAB PO SCH (08:58)
[2018-01-18] MEDS: Ferrous Gluconate 324 MG TAB PO SCH ×2 (08:58→20:27)
[2018-01-18] MEDS: Senokot S 8.6-50 MG TAB PO SCH ×2 (08:58→20:27)
[2018-01-18] MEDS: Rosuvastatin 10 MG TAB PO SCH (08:58)
[2018-01-18] MEDS: Folic Acid 1 MG TAB PO SCH (08:59)
[2018-01-18] MEDS: Famotidine 20 MG TAB PO SCH ×2 (08:59→20:27)
[2018-01-18] MEDS: Furosemide 40 MG TAB PO SCH (08:59)
[2018-01-18] MEDS: Amlodipine 5 MG TAB PO SCH (08:59)
[2018-01-18] MEDS: Cyanocobalamin (Vitamin B-12) 1,000 MCG TAB PO SCH (08:59)
[2018-01-18] MEDS: Multivitamin W/ Minerals 1 TAB PO SCH (08:59)
[2018-01-18] MEDS: Montelukast Sodium 10 mg Tablet PO SCH (08:59)
--- NOTE | 2018-01-18 12:40 | PRG ---
DATE OF SERVICE: 01/18/2018 SUBJECTIVE: The patient said that she is doing good this morning. She has no complaints. Her knees are a little sore, but no more than usual. OBJECTIVE: GENERAL: The patient is sitting up on side of the bed. She is alert, talkative, appears in no distress. VITAL SIGNS: Temp 97.3, pulse 65, respirations 18, O2 saturation 99.5, blood pressure 170/68. LUNGS: Clear. HEART: Regular rate. EXTREMITIES: Left knee incision healed. There is no redness, no effusion, no increase in size of the knee. There is no edema in the lower leg. ASSESSMENT: 1. Weakness and gait abnormality. a. Secondary to left total knee replacement on 12/15/2017. b. Continued improvement. Walking further, transferring further, good flexion of the left knee as of 01/18/2018. 2. Severe osteoarthritis of the left knee. a. 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 b. Improving as of 01/18/2018. 3. Hospitalized at [facility] from 12/15/2017 until 12/18/2017 for left total knee replacement. 4. Hypertension. a. Controlled as of 01/18/2018. 5. Chronic persistent asthma. a. Controlled. 6. Mild coronary artery disease. a. Heart cath showed 40% to 50% distal right coronary artery stenosis on , medically managed. b. Asymptomatic as of 01/18/2018. 7. Spondylosis of the lumbar spine, complicated by spinal stenosis. a. Stable. Continue PT, OT. The patient planning on being discharged home on Thursday01/20/2018. She will have help at home at that time. Job ID: [id number] [facility]
[2018-01-19] MEDS: SYMBICORT INH SCH ×2 (06:18→18:49)
[2018-01-19] MEDS: Enoxaparin Sodium 40 MG/0.4 ML SYRINGE SC SCH (08:35)
[2018-01-19] MEDS: Senokot S 8.6-50 MG TAB PO SCH ×2 (08:36→20:24)
[2018-01-19] MEDS: Furosemide 40 MG TAB PO SCH (08:36)
[2018-01-19] MEDS: Rosuvastatin 10 MG TAB PO SCH (08:36)
[2018-01-19] MEDS: Cyanocobalamin (Vitamin B-12) 1,000 MCG TAB PO SCH (08:36)
[2018-01-19] MEDS: Montelukast Sodium 10 mg Tablet PO SCH (08:36)
[2018-01-19] MEDS: Folic Acid 1 MG TAB PO SCH (08:37)
[2018-01-19] MEDS: Ferrous Gluconate 324 MG TAB PO SCH ×2 (08:37→20:24)
[2018-01-19] MEDS: Amlodipine 5 MG TAB PO SCH (08:38)
[2018-01-19] MEDS: hydrALAZINE 25 MG TAB PO SCH (08:38)
[2018-01-19] MEDS: Multivitamin W/ Minerals 1 TAB PO SCH (08:38)
[2018-01-19] MEDS: Famotidine 20 MG TAB PO SCH ×2 (08:38→20:24)
[2018-01-19] MEDS: HYDROcodone/Acetaminophen 7.5/325 mg Tablet PO PRN ×2 (08:40→20:24)
--- NOTE | 2018-01-19 11:42 | PRG ---
DATE OF SERVICE: 01/19/2018 SUBJECTIVE: The patient says she is doing fine. She has no complaint. Preparations are being made by her family for her discharge in the morning. She is doing well with therapy, is transferring better. OBJECTIVE: GENERAL: The patient is sitting up in bed, alert, appears very comfortable, in no distress. VITAL SIGNS: Temperature 97.8, pulse 64, respirations 18, O2 saturation 97% on room air, and blood pressure 149/68. LUNGS: Clear. HEART: Regular rate. EXTREMITIES: Left lower leg, no edema. Knee incision healing well. There is no redness to the knee. No effusion. 1. WEAKNESS AND GAIT ABNORMALITY.: a. Secondary to left total knee replacement on 12/15/2017. b. Continued improvement. Walking further, transferring further, good flexion of the left knee as of 01/19/2018. 1. Severe osteoarthritis of the left knee. a. 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 b. Improving as of 01/19/2018. 2. Hospitalized at [facility] from 12/15/2017 until 12/18/2017 for left total knee replacement. 1. Hypertension. a. Controlled as of 01/19/2018. Pressure elevated a little today, but has not yet had medication. 1. Chronic persistent asthma. a. Controlled. 2. Mild coronary artery disease. a. Heart cath showed 40% to 50% distal right coronary artery stenosis on 09/07/1998, medically managed. b. Asymptomatic as of 01/19/2018. 3. Spondylosis of the lumbar spine, complicated by spinal stenosis. a. Stable. Continue PT, OT. PLAN: Continue PT and OT. Anticipate discharge in the morning. Job ID: [id number]
[2018-01-20] MEDS: SYMBICORT INH SCH (06:23)
[2018-01-20 07:48] VITALS: TEMP 98
[2018-01-20] MEDS: Cyanocobalamin (Vitamin B-12) 1,000 MCG TAB PO SCH (08:31)
[2018-01-20] MEDS: Montelukast Sodium 10 mg Tablet PO SCH (08:31)
[2018-01-20] MEDS: Rosuvastatin 10 MG TAB PO SCH (08:31)
[2018-01-20] MEDS: hydrALAZINE 25 MG TAB PO SCH (08:31)
[2018-01-20] MEDS: Folic Acid 1 MG TAB PO SCH (08:32)
[2018-01-20] MEDS: Ferrous Gluconate 324 MG TAB PO SCH (08:32)
[2018-01-20] MEDS: Amlodipine 5 MG TAB PO SCH (08:32)
[2018-01-20] MEDS: Famotidine 20 MG TAB PO SCH (08:32)
[2018-01-20] MEDS: Furosemide 40 MG TAB PO SCH (08:32)
[2018-01-20 08:33] VITALS: BP 149/68
[2018-01-20] MEDS: Senokot S 8.6-50 MG TAB PO SCH (08:33)
[2018-01-20] MEDS: Enoxaparin Sodium 40 MG/0.4 ML SYRINGE SC SCH (08:33)
[2018-01-20] MEDS: Multivitamin W/ Minerals 1 TAB PO SCH (08:33)
--- NOTE | 2018-01-21 07:56 | DIS ---
DATE OF ADMISSION: 12/18/2017 DATE OF DISCHARGE: 01/20/2018 FINAL DIAGNOSES: 1. Weakness and gait abnormality. a. Secondary to left total hip replacement on 12/15/2017. b. Continued improvement. Walking further, transferring independently. Good flexion of the left knee as of 01/20/2018. 2. Severe osteoarthritis of the left knee. a. 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 b. Continued improvement as of 01/20/2018. 3. Hospitalized at [facility] from 12/15/2017 to 12/18/2017 for left total knee replacement. 4. Hypertension. a. Controlled. 5. Chronic persistent asthma. a. Controlled. 6. Mild coronary artery disease. a. Heart cath showed 40% to 50% distal right coronary artery stenosis on , that is medically managed. b. Asymptomatic as of 01/20/2018. 7. Spondylosis of the lumbar spine complicated by spinal stenosis. a. Stable. HOSPITAL COURSE: The patient is an 82-year-old white female, who has severe osteoarthritis of the left knee, severe spondylosis of the lumbar spine complicated by spinal stenosis, hypertension that is controlled, persistent asthma that is controlled, and mild coronary artery disease that is medically managed and asymptomatic. Her left knee had progressively become more symptomatic and unresponsive to conservative measures and steroid injections. She was bone on bone, had severe pain with any weightbearing. She underwent a left total knee replacement on 12/15/[address] Jeff Hays, orthopedic surgeon. She was hospitalized at [facility] from 12/15/2017 until 12/18/2017 for this surgery. She was transferred to [facility] on 12/18/2017 to [facility] for continued physical therapy and occupational therapy to help her with her severe generalized weakness and gait abnormality and range of motion of the left knee. Prior to her surgery, she had been independent of her ADLs, but was having increasing trouble with her gait and due to the severe arthritic knee. The patient made excellent progress with her physical therapy while at [facility]. She gradually progressed with her activities and, by her time of her discharge, she was ambulating up to 150 feet 2 times a day with a rolling walker and just standby assistance. She was transferring with standby assistance. Her range of motion of the left knee was little greater than 90 degrees. Her incision healed well. She did have an episode following the therapy session of severe pain in the lateral aspect of the left knee. X-ray of the left knee did not show any displacement of the hardware. No obvious fracture. The pain settled with ice application or pain medication, and she was able to resume her PT. She was seen by Dr. Hays, who reviewed her x-ray and thought she might have had a tiny chip avulsion fracture of the fibular head that may have been causing this. This would not need any treatment and this got gradually better and better. The patient's pain was well managed and eventually, she was able to manage her pain with Tylenol and an occasional hydrocodone 7.5. She had good control of her blood pressure. Her persistent asthma was well controlled. She received Lovenox for DVT prophylaxis. Her last lab on 01/05 showed a hemoglobin of 10.2 and hematocrit of 31.8 up from admission of 9.5 and 28.8. This mild anemia was postop just from her recent surgery and expect continued improvement. Her sodium was 141, potassium 4.6, BUN 20, creatinine 0.78, and glucose 97. About 01/20, she was doing well and felt like she could manage fine at home with 1 of her daughters, because she will be staying with her for a while to help her transition back to independent living. [facility] will also look in on her and will continue with in-home PT and OT. She will be seeing Dr. Hays, orthopedic surgeon, follow up on 02/24. DISPOSITION: DIET: Regular diet. No added salt. ACTIVITIES: Ambulate with the use of a walker with wheels. [facility], will see her and arrange in-home PT and OT. MEDICATIONS: 1. Acetaminophen 325 mg 2 every 4 hours as needed. 2. Ventolin inhaler 2 puffs every 6 hours p.r.n. 3. Lotrel (amlodipine/benazepril) 10/20 one daily. 4. Tums 500 mg 2 every 4 hours p.r.n. indigestion. 5. B12 of 1000 mcg p.o. daily. 6. Famotidine 20 mg b.i.d. 7. Ferrous gluconate 324 mg b.i.d. 8. Folic acid 1 mg daily. 9. Furosemide 40 mg daily. 10. Hydralazine 50 mg daily. 11. Hydrocodone/acetaminophen 7.5/325 one twice a day as needed. 12. Theragran-M daily. 13. Imdur 30 mg daily. 14. Singulair 10 mg daily. 15. Crestor 40 mg daily. 16. Senokot-S 2 b.i.d. 17. Symbicort 160/4.5 two inhalations b.i.d. FOLLOWUP: The patient should see Dr. Jeff Hays, orthopedic surgeon on 02/24/2018. The patient will be seen by myself in 2 weeks with CBC and basic metabolic panel. CODE STATUS: Full code. Job ID: [id number] [facility]TD[facility]
--- NOTE | 2018-01-22 10:13 | PQF ---
HELENA YBARRA GROVER MD [id number] CLINICAL DOCUMENTATION CLARIFICATION FORM: POST DISCHARGE Addendum to original discharge summary date: ____ Late entry note date: __ DATE: 01/22/18 ATTN: DR CASTELLANOS Please exercise your independent, professional judgment in responding to the clarification form. Clinical indicators are provided on the bottom of this form for your review Please check appropriate box(s): __ Fibula fracture is a complication of recent TKR (present on admission) _+_ Fibula fracture is not a complication of recent TKR (present on admission) __ Fibula fracture is due to Trauma (present on admission) __ Fibula fracture is nontraumatic (spontaneous) (present on admission) __ Fibula fracture is due to other etiology (present on admission) [ ] Other diagnosis [ ] Unable to determine In addition, please specify: Present on Admission (POA): [ ] Yes [ ] No [ ] Unable to determine CLINICAL INDICATORS - SIGNS / SYMPTOMS / LABS -- Discharge summary under hospital course documents "Dr. Hays reviewed her x- ray and thought she might have had a tiny chip avulsion fracture of the fibular head. This would not need any treatment and this got gradually better and better. -- H and P by Mack Luther documents patient presents with weakness following left knee replacement. RISK FACTORS -- H and P recent total left knee replacement -- Spondylosis and stenosis of lumbar spine TREATMENT: -- Discharge summary documents tylenol and hydrocodone -- Discharge summary documents Continue in-home Physical therapy and occupational therapy -- Discharge summary documents follow up with orthopedic surgeon (This form is maintained as a part of the permanent medical record) 2014 [employer]. All Rights Reserved Mari [email or web address] [phone] [facility]ENTER[facility]
== END 2018-01-20 10:23 | disposition home health service (06) | DRG 92 ==
LOC: MADMS 13:03
PROVIDERS: ADMIT Family Medicine; ATTEND Family Medicine
DX: R26.9 Unspecified abnormalities of gait and mobility (principal); M84.464A Pathological fracture, left fibula, initial encounter for fracture; R53.1 Weakness; I10 Essential (primary) hypertension; I25.10 Atherosclerotic heart disease of native coronary artery without angina pectoris; J45.40 Moderate persistent asthma, uncomplicated; M48.061 Spinal stenosis, lumbar region without neurogenic claudication; E78.5 Hyperlipidemia, unspecified; M47.816 Spondylosis without myelopathy or radiculopathy, lumbar region; M25.562 Pain in left knee; M15.8 Other polyosteoarthritis; D64.9 Anemia, unspecified; Z96.1 Presence of intraocular lens; R50.82 Postprocedural fever; Z96.652 Presence of left artificial knee joint; Z98.890 Other specified postprocedural states; Z90.710 Acquired absence of both cervix and uterus; Z98.41 Cataract extraction status, right eye; Z98.42 Cataract extraction status, left eye; Z79.51 Long term (current) use of inhaled steroids; Z79.899 Other long term (current) drug therapy; Z88.8 Allergy status to other drugs, medicaments and biological substances; Z86.73 Personal history of transient ischemic attack (TIA), and cerebral infarction without residual deficits
CPT/HCPCS: 36415; 80048; 80053; 85025; 94664; G8978-GP-CJ; G8978-GP-CL; G8979-GP-CI; G8979-GP-CJ; G8987-GO-CI; G8987-GO-CM; G8988-GO-CI; J1650; J7050